=== PATIENT | female | born 1990 | race African-American/Black ===

== ENCOUNTER 2017-10-17 17:32 | Day surgery (SDC) | payer OTHER ==
[~2017-10-17 17:32] MED LIST: ACETAMINOPHEN 1,000 MG/100 ML 100 ML IV ONE; DEXAMETHASONE 4 MG/ML VIAL IVP ONE; LACTATED RINGERS 1,000 ML IV ONE; LIDOCAINE-MPF 2% 5 ML VIAL IM ONE; MIDAZOLAM 2 MG/2 ML VIAL IVP ONE; ONDANSETRON 4 MG/2 ML VIAL IVP ONE; PROPOFOL 200 MG/20 ML VIAL IVP ONE; ROCURONIUM 50 MG/5 ML VIAL IVP ONE; ceFAZolin 1 GM VIAL IV ONE; fentaNYL 100 MCG/2 ML VIAL IVP ONE
[2017-10-17 18:56] LABS: BILIRUBIN,URINE NEGATIVE (NEGATIVE); GLUCOSE, URINE (UA) NEGATIVE (NEGATIVE); KETONES,URINE (UA) NEGATIVE (NEGATIVE); LEUKOCYTE ESTERASE, URINE NEGATIVE (NEGATIVE); NITRITE,URINE NEGATIVE (NEGATIVE); OCCULT BLOOD,URINE SMALL (NEGATIVE); PROTEIN,URINE 30 mg/dL (NEGATIVE); UROBILINOGEN,URINE 0.2 (NORMAL) E.U./dL (NORMAL)
[2017-10-17 18:59] LABS: CLARITY,URINE HAZY (CLEAR)
[2017-10-17 19:00] LABS: HCG UR QUAL POSITIVE
[2017-10-17 19:15] LABS: BACTERIA,URINE Rare /HPF (None Seen); MUCUS,URINE Few Strands; SQUAMOUS EPITHELIAL CELL,UR FEW Squamous (<= Few)
[2017-10-17 19:18] LABS: BASOPHILS # (AUTO) 0.1 10^3/uL (0.0-0.1); BASOPHILS % (AUTO) 0.5 %; EOSINOPHILS % (AUTO) 0.2 %; HGB - HEMOGLOBIN 11.2 g/dL (12.0-16.0); LYMPHOCYTES # (AUTO) 0.4 10^3/uL (1.5-3.5); LYMPHOCYTES % (AUTO) 4.2 %; MEAN CORPUSCULAR HEMOGLOBIN 26.8 pg (27.0-31.0); MEAN CORPUSCULAR HGB CONC 31.7 g/dL (32.0-36.0); MEAN CORPUSCULAR VOLUME 84.5 fL (81.0-99.0); MEAN PLATELET VOLUME 10.8 fL (7.9-10.8); MONOCYTES # (AUTO) 0.3 10^3/uL (0.0-1.0); MONOCYTES % (AUTO) 2.8 %; NEUTROPHILS # (AUTO) 8.8 10^3/uL (1.5-6.6); NEUTROPHILS % (AUTO) 92.3 %; PLT - PLATELET COUNT 133 10^3/uL (130-450); RED BLOOD COUNT 4.19 10^6/uL (4.20-5.40); RED CELL DISTRIBUTION WIDTH 13.9 % (12.0-15.0); WHITE BLOOD COUNT 9.5 x10^3/uL (4.8-10.8)
[2017-10-17 19:33] LABS: ALBUMIN 4.3 g/dL (3.2-5.5); ALBUMIN/GLOBULIN RATIO 1.2 (1.0-2.2); BILIRUBIN,TOTAL 0.6 mg/dL (0.2-1.0); CREATININE 0.8 mg/dL (0.4-1.0); TOTAL PROTEIN 7.8 g/dL (6.7-8.2)
--- NOTE | 2017-10-17 19:41 | ED Physician Documentation ---
PD HPI ABD PAIN - Stated complaint Stated Complaint: ABD PX - Chief complaint Chief Complaint: Abd Pain - History obtained from History obtained from: Patient - History of Present Illness Timing - onset: Other (This is a , now G3 who did not know she was who has had 3 days of decreased appetite and a day worth of increasing pelvic pain with spotting. She may have had some fevers or chills but nothing measured and she has been nauseous but has not thrown up. 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 PROFESSOR OF BUSINESS: None : None HEENT: None Psych: None Musculoskeletal: Rheumatoid arthritis Derm: None - Past Surgical History Past Surgical History: No - Present Medications Home Medications: Ambulatory Orders Medication Instructions Recorded Confirmed Multivitamin with Iron 1 each PO DAILY 10/17/17 10/17/17 [Multivitamins with Iron] sulfaSALAzine [Azulfidine] 1 tab PO DAILY 10/17/17 10/17/17 - Allergies Allergies/Adverse Reactions: Allergies Allergy/AdvReac Type Severity Reaction Status Date / Time No Known Drug Allergies Allergy Verified 10/17/17 18:03 - Social History Does the pt smoke?: No Smoking Status: Never smoker Does the pt drink ETOH?: No Does the pt have substance abuse?: No - Family History Family history: reports: Non contributory - Immunizations Immunizations are current?: Yes - POLST Patient has POLST: No PD ED PE NORMAL - Vitals Vital signs reviewed: Yes - General General: Alert and oriented X 3, No acute distress - HEENT HEENT: PERRL, EOMI - Neck Neck: Supple, no meningeal sign, No bony TTP - Cardiac Cardiac: RRR, No murmur - Respiratory Respiratory: No respiratory distress, Clear bilaterally - Abdomen Abdomen: Normal bowel sounds, Soft, Other (Mild lower abdominal tenderness, more right than left without surgical signs.) - Back Back: No CVA TTP, No spinal TTP - Derm Derm: Normal color, Warm and dry - Extremities Extremities: No deformity, No tenderness to palpate, Normal ROM s pain, No edema , No calf tenderness / cord - Neuro Neuro: Alert and oriented X 3, Normal speech - Psych Psych: Normal mood, Normal affect Results - Vitals Vitals: Vital Signs - 24 hr 10/17/17 10/17/17 17:59 21:15 Temperature 37.1 C Heart Rate 94 115 H Respiratory 16 16 Rate Blood Pressure 120/56 L 143/116 H O2 Saturation 99 99 Oxygen O2 Source Room air - Labs Labs: Laboratory Tests 10/17/17 10/17/17 10/17/17 18:35 19:12 19:12 WBC 9.5 RBC 4.19 L Hgb 11.2 L Hct 35.4 L MCV 84.5 MCH 26.8 L MCHC 31.7 L RDW 13.9 Plt Count 133 MPV 10.8 Neut # 8.8 H Lymph # 0.4 L [place] # 0.3 Eos # 0.0 Baso # 0.1 Absolute Nucleated RBC 0.01 Nucleated RBC % 0.1 Sodium 133 L Potassium 3.7 Chloride 102 Carbon Dioxide 25 Anion Gap 6.0 BUN 10 Creatinine 0.8 Estimated GFR (MDRD) 104 Glucose 94 Calcium 9.0 Total Bilirubin 0.6 AST 25 ALT 18 Alkaline Phosphatase 45 Total Protein 7.8 Albumin 4.3 Globulin 3.5 Albumin/Globulin Ratio 1.2 Lipase 17 L HCG, Quant Urine Color YELLOW Urine Clarity HAZY Urine pH 7.0 Ur Specific [place] 1.025 Urine Protein 30 H Urine Glucose (UA) NEGATIVE Urine Ketones NEGATIVE Urine Occult Blood SMALL H Urine Nitrite NEGATIVE Urine Bilirubin NEGATIVE Urine Urobilinogen 0.2 (NORMAL) Ur Leukocyte Esterase NEGATIVE Urine RBC 6-10 H Urine WBC 0-3 Ur Squamous Epith Cells FEW Squamous Urine Bacteria Rare Urine Mucus Few Strands Ur Microscopic Review INDICATED Urine Culture Comments NOT INDICATED Urine HCG, Qual POSITIVE Blood Type 10/17/17 10/17/17 19:12 19:12 WBC RBC Hgb Hct MCV MCH MCHC RDW Plt Count MPV Neut # Lymph # [place] # Eos # Baso # Absolute Nucleated RBC Nucleated RBC % Sodium Potassium Chloride Carbon Dioxide Anion Gap BUN Creatinine Estimated GFR (MDRD) Glucose Calcium Total Bilirubin AST ALT Alkaline Phosphatase Total Protein Albumin Globulin Albumin/Globulin Ratio Lipase HCG, Quant 855.83 Urine Color Urine Clarity Urine pH Ur Specific [place] Urine Protein Urine Glucose (UA) Urine Ketones Urine Occult Blood Urine Nitrite Urine Bilirubin Urine Urobilinogen Ur Leukocyte Esterase Urine RBC Urine WBC Ur Squamous Epith Cells Urine Bacteria Urine Mucus Ur Microscopic Review Urine Culture Comments Urine HCG, Qual Blood Type A POSITIVE - Rads (name of study) Pelvic sono Radiology: Discussed with rads (Right adnexal mass measuring 2.8 x 2.6 x 2.7 cm concerning for ectopic but she also has a possible gestational sac corresponding to dates.) PD MEDICAL DECISION MAKING - ED course ED course: 26-year-old woman with pelvic pain, found to be here and workup demonstrates concern for ectopic . Dr. Lopez, the on-call OB will be in to see her and we spoke around 9:20 PM. After his evaluation he plans to take her to the operating room for laparoscopy. Departure - Departure Disposition: ED Transfer to [facility] Clinical Impression: Ectopic Qualifiers: Location of ectopic : ovarian Intrauterine status: without intrauterine Laterality: right Qualified Code(s): O00.201 - Right ovarian without intrauterine Condition: Serious
[2017-10-17] MEDS ORDERED: MORPHINE 2 MG/ML SYRINGE IVP STA (21:01)
--- NOTE | 2017-10-17 21:23 | Ultrasound Report ---
REVISED: REPORT ORIGINALLY SIGNED ON 10/17/2017@2123; ORDERS LINKED ON 2017 jll EXAM: FIRST TRIMESTER OBSTETRIC ULTRASOUND (Less than 11 weeks) EXAM DATE: 10/17/2017 09:01 PM. CLINICAL HISTORY: Pelvic pain, +preg. COMPARISONS: None. TECHNIQUE: Transabdominal and transvaginal ultrasound examination with static image documentation. CLINICAL DATES: EGA 4 weeks 5 days with REGINALDO 06/21/2018 based on LMP. ASSESSMENT Gestational Sac: Spelled out of hypoechoic fluid in the fundal endometrium measuring 1.2 x 1.37 m could represents an early gestational sac correspond out of endometrial fluid. Mean gestational sac diameter: 2.2 mm = 4 weeks 6 days. Embryo: None visualized. MATERNAL STRUCTURES Uterus: Anteverted. Unremarkable. Cervix: Closed. Right Ovary/Adnexa: Unremarkable. The ovary measures 4.3 x 2.7 x 2.6 cm, volume 15.8 cc. Probable small corpus luteum. Complex appearing right adnexal mass adjacent to the right ovary with heterogeneous echogenicity and some hyperechoic components measuring 2.8 x 2.6 x 2.7 cm. This was not well seen transvaginally and the patient was unable to tolerate transvaginal exam due to pain. Left Ovary/Adnexa: 2.8 x 2.1 x 1.9 cm, unremarkable. Free Fluid: Small amount of free fluid in the pelvis with some internal echoes. Other: None. IMPRESSION 1. Heterogeneous right adnexal mass adjacent to right ovary measuring 2.8 x 2.6 x 2.7 cm. Ectopic is not excluded. It is possible that this could also represent a complex cystic lesion. This was only seen transabdominally and was not well evaluated transvaginally due to patient pain. 2. Small area of oval fluid in the fundal endometrium which could represent an early gestational sac with estimated gestational age 4 weeks 6 days, which correlates with dating by LMP. This could also represent a small amount of endometrial fluid. 3. Small amount of mildly complex pelvic free fluid. RADIA The above findings were discussed with Dr. Aguiar by Dr. Anurag Spicer at 21:21 hrs on 10/17/17. Referring Provider Line: [phone] SITE ID: [id number]
[2017-10-17] MEDS ORDERED: SODIUM CHLORIDE 0.9% 1,000 ML IV ONE (21:28)
[2017-10-17] MEDS ORDERED: BUPIVACAINE 0.25% PF 30 ML VIAL ONE (23:24)
[2017-10-17 23:34] VITALS: BP 130/60
[2017-10-17] MEDS ORDERED: LACTATED RINGERS 600 ML IV ONE (23:35)
[2017-10-18] MEDS ORDERED: BUPIVACAINE 0.25% PF 30 ML VIAL SUBQ ONE (00:19)
[2017-10-18] MEDS ORDERED: LACTATED RINGERS 1,000 ML IV ONE (00:23)
[2017-10-18] MEDS ORDERED: MEPERIDINE 50 MG/ML VIAL ONE (01:41)
[2017-10-18] MEDS ORDERED: oxyCODONE 5 MG TABLET PO PRN (03:31)
[2017-10-18] MEDS ORDERED: KETOROLAC 30 MG/ML VIAL IVP PRN (03:32)
[2017-10-18] MEDS ORDERED: ONDANSETRON 4 MG/2 ML VIAL IVP PRN (03:32)
[2017-10-18] MEDS ORDERED: LACTATED RINGERS 1,000 ML IV SCH (04:00)
--- NOTE | 2017-10-20 10:35 | PREOP HISTORY & PHYSICAL ---
DATE OF SERVICE: 10/17/2017 Physician: Eliel Lopez MD ANTICIPATED DATE FOR PROCEDURE: 10/17/2017 IDENTIFICATION: Patient is a 26-year-old G3, P2, female whose last menstrual period was 09/14/2017; this makes her 4 weeks 5 days. CHIEF COMPLAINT: Right-sided abdominal pain. HISTORY OF PRESENT ILLNESS: Patient states yesterday she developed right lower quadrant pain, which has gotten progressively worse with time. She states this is sharp and very severe at this time. She states it is better with pain medications. She states it radiates to the right leg. She was using control pills for contraception. She denies any history of any pelvic infections or IUD use. She has a positive test here in the ED. PAST MEDICAL HISTORY: Positive for RA. SURGICAL HISTORY: None. ALLERGIES: CHLOROQUINE. CURRENT MEDICATIONS 1. Sulfasalazine. 2. MVI. HABITS: Patient denies the use of alcohol, tobacco, street or addictive drugs, or any tetrahydrocannabinol. 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 Lives with her children at this particular time. FAMILY HISTORY: Negative for breast or ovarian cancer. REVIEW OF SYSTEMS: Positive for feeling poorly. She has also had some nausea. PHYSICAL EXAMINATION VITAL SIGNS: Temperature of 37.1. Pulse is 99-115. Blood pressure 120/56. HEENT: Pupils equal, round. Extraocular muscles intact. Thyroid is not palpably enlarged. Mouth is clear. HEART: Regular rate and rhythm with a grade 2/6 systolic murmur heard best at the left second costal space. LUNGS: Lung hebert are clear. BACK: No spinal or CVA tenderness. ABDOMEN: Tender with rebound, particularly in the right lower quadrant. She is tender throughout. PELVIC: Examination shows some right adnexal tenderness. There is tenderness abdominally once again. STUDIES: Patient has an ultrasound which shows a 2.6-2.7 adnexal mass, which is complex on the right hand side. There is thought of an intrauterine gestational sac. LABORATORY DATA: Labs show a quantitative hCG of 855. White count is 9.5. Hemoglobin is 11.2. Hematocrit is 35.4. Platelets are 133. Electrolytes are normal with the exception of a hyponatremia of 133. IMPRESSION: A 26-year-old G3, P2, at 4.5 weeks' gestation with a suspected right ectopic . Appears to have peritoneal signs which are compatible with hemoperitoneum. PLAN: Will perform a laparoscopy with possible resection of the ectopic , tube, and/or ovary. Risks and benefits have been explained to the patient including those, but not limited to bleeding, infection, injury to pelvic organs, which include the uterus, tubes, ovaries, bowel, bladder, and ureter. She is aware of the potential for DVT with PE, as well as postoperative adhesions which could cause pain, bowel obstruction, and infertility. TD: 10/17/2017 23:48
--- NOTE | 2017-10-20 11:21 | OPERATIVE REPORT ---
DATE OF SERVICE: 10/18/2017 Physician: Eliel Lopez MD PREOPERATIVE DIAGNOSIS: Right ectopic . POSTOPERATIVE DIAGNOSIS: Right ectopic with 250 mL of hemoperitoneum. NAME OF PROCEDURE: Laparoscopic right salpingectomy, irrigation of hemoperitoneum. SURGEON: Eliel Lopez MD ANESTHESIA: General via endotracheal tube. ANESTHESIOLOGIST: Kenya Soni CRNA FINDINGS: Hemoperitoneum of 250 mL with a ruptured right ectopic . COMPLICATIONS: None. ESTIMATED BLOOD LOSS: 250 mL. SPECIMENS TO PATHOLOGY: Right fallopian tube. DESCRIPTION OF PROCEDURE: Following adequate endotracheal anesthesia, patient was placed in the dorsal lithotomy position in [facility]. At this point, she was prepped and draped in the usual fashion. A timeout was performed, in which the patient was identified , as well as concerns addressed. A speculum was placed in the vagina, the cervix was visualized, grasped with a single-tooth tenaculum, and then a cervical manipulator was placed in the cervical os. At this point, the lead operator's gloves were changed and then a stab wound was made in the subumbilical region, following local anesthesia with 0.25% Marcaine without epinephrine. A 5 mm trocar and sheath were placed in the abdominal cavity on the first pass. Two additional ports were placed, both in the left and the right lower quadrants following local anesthesia with 0.25% Marcaine, as well as a skin incision with a #15 blade. Both of these were done under direct visualization. Hemoperitoneum was encountered at this time. The peritoneum was irrigated and aspirated with sterile saline .There was an obvious right ectopic , which had blood dripping from the fimbriated end. There was a question of whether there was a rent through the serosa. At this point, the mesosalpinx was cauterized and transected with the LigaSure. A 12 mm port was made following extension of the incision on the right lower quadrant. The fallopian tube was then grasped and brought up through the incision; this was carried all the way to the cornua. This area was inspected, no bleeding was noted. The remainder of the pelvis was irrigated with copious amounts of sterile saline. The left fallopian tube, which had previously been visualized and noted to have a fimbriated end, without evidence of any scarring. Both ovaries appeared to be free of disease. The appendix also appeared to be free of disease; however, was retrocecal on the right hand side. Gallbladder appeared to be normal. Roughly 2 liters of sterile saline was used to irrigate the abdominal cavity out to decrease any postoperative pain. At this point, the procedure was terminated. The right lower quadrant 12 mm port was removed, and then a Silvio-Herminia was used to place a suture of 0 Vicryl, which closed this incision completely. The left lower quadrant trocar was then removed and then as much of the CO2 was allowed to escape. The right lower quadrant incision was then closed subcutaneously with 2-0 Vicryl, and then all 3 incisions were closed using 4-0 Monocryl subcuticular. Dermabond was used for the final closure. The instruments were then removed from the vagina. Patient tolerated the procedure well and was taken to Recovery in stable condition. Sponge and needle counts were correct. TD: 10/18/2017 04:52 KEVIN
== END 2017-10-18 09:05 | disposition home or self-care (01) ==
LOC: ED 17:32 → SDS 22:39 → OBS 10-18 01:35 → SDS 10-18 09:05
PROVIDERS: ATTEND Obstetrics & Gynecology
PROC: 0UT54ZZ Resection of Right Fallopian Tube, Percutaneous Endoscopic Approach (ICD-10-PCS; 2017-10-17)
PROC: 10T24ZZ Resection of Products of Conception, Ectopic, Percutaneous Endoscopic Approach (ICD-10-PCS; principal; 2017-10-17 23:30)
DX: O00.101 Right tubal pregnancy without intrauterine pregnancy (principal); K66.1 Hemoperitoneum
CPT/HCPCS: 36415; 59151; 76801; 76817; 80053; 81001; 81025; 83690; 84702; 85025; 86850; 86900; 86901; 86920; 96361; 96374; 99284; A9270; J0131; J2175; J2270; J7120; 81003; 87086; 88305

== ENCOUNTER 2018-12-28 16:27 | Emergency (ER) | payer OTHER ==
[2018-12-28 16:57] LABS: BILIRUBIN,URINE NEGATIVE (NEGATIVE); CLARITY,URINE CLEAR (CLEAR); GLUCOSE, URINE (UA) NEGATIVE (NEGATIVE); KETONES,URINE (UA) NEGATIVE (NEGATIVE); LEUKOCYTE ESTERASE, URINE NEGATIVE (NEGATIVE); NITRITE,URINE NEGATIVE (NEGATIVE); OCCULT BLOOD,URINE NEGATIVE (NEGATIVE); PROTEIN,URINE NEGATIVE (NEGATIVE); UROBILINOGEN,URINE 0.2 (NORMAL) E.U./dL (NORMAL)
[2018-12-28 16:58] LABS: HCG UR QUAL POSITIVE
--- NOTE | 2018-12-28 18:53 | ED Physician Documentation ---
PD HPI ABD PAIN - Stated complaint Stated Complaint: ABD PX/CONSTIPATED - Chief complaint Chief Complaint: Abd Pain - History obtained from History obtained from: Patient - History of Present Illness Timing - onset: How many weeks ago (has had some upper abd pains and reflux for few weeks. Taking TUMs at times. has had firm, less stools as well. Having some lower abd cramping more the past few days, and thought it might be from constipation.) Timing - details: Gradual onset, Intermittant Quality: Cramping, Pain Location: Epigastric (with some intermittent gas and burning feeling.), Suprapubic (with intermittent cramping pain more recently.) Improved by: Meds (TUMs) Worsened by: No: Eating, Moving Associated symptoms: Nausea, Other (positive test last week). No: Fever, Vomiting, Diarrhea Similar symptoms before: Has not had sx before Recently seen: Not recently seen Review of Systems Constitutional: denies: Fever, Chills GI: reports: Nausea, Constipation. denies: Vomiting, Diarrhea : reports: Now EGA (LMP 11/26/18). denies: Dysuria, Frequency PD PAST MEDICAL HISTORY - Past Medical History Past Medical History: No Cardiovascular: None Respiratory: None Neuro: None Endocrine/Autoimmune: None GI: None ADMINISTRATIVE RECEPTIONIST: None : None HEENT: None Psych: None Musculoskeletal: Rheumatoid arthritis Derm: None - Past Surgical History Past Surgical History: No /ADMINISTRATIVE RECEPTIONIST: Other - Present Medications Home Medications: Ambulatory Orders Medication Instructions Recorded Confirmed Multivitamin with Iron 1 each PO DAILY 10/17/17 10/17/17 [Multivitamins with Iron] sulfaSALAzine [Azulfidine] 1 tab PO DAILY 10/17/17 10/17/17 Docusate Sodium 100 mg PO DAILY #30 capsule 12/28/18 Famotidine 20 mg PO DAILY #30 tablet 12/28/18 Lidocaine Viscous 2% [Xylocaine 5 ml PO Q4H PRN #100 ml 12/28/18 Viscous 2%] Mag Hydrox/Al Hydrox/Simeth [Adv 10 ml PO Q4H PRN #355 ml 12/28/18 Antacid-Antigas Liquid] - Allergies Allergies/Adverse Reactions: Allergies Allergy/AdvReac Type Severity Reaction Status Date / Time No Known Drug Allergies Allergy Verified 12/28/18 16:35 - Social History Does the pt smoke?: No Smoking Status: Never smoker Does the pt drink ETOH?: No Does the pt have substance abuse?: No - Immunizations Immunizations are current?: Yes - POLST Patient has POLST: No PD ED PE NORMAL - Vitals Vital signs reviewed: Yes - General General: Alert and oriented X 3, No acute distress, Well developed/nourished - HEENT HEENT: Pharynx benign - Neck Neck: Supple, no meningeal sign, No adenopathy - Cardiac Cardiac: RRR, No murmur - Respiratory Respiratory: Clear bilaterally - Abdomen Abdomen: Normal bowel sounds, Soft, Non distended, No organomegaly, Other (some tender epigastric. Not really tender in lower abd) - Female Female : Deferred - Rectal Rectal: Deferred - Derm Derm: Normal color, Warm and dry Results - Vitals Vitals: Oxygen O2 Source Room air - Labs Labs: Laboratory Tests 12/28/18 12/28/18 12/28/18 16:49 21:19 21:19 WBC 4.4 L RBC 4.26 Hgb 11.5 L Hct 35.6 L MCV 83.7 MCH 26.9 L MCHC 32.1 RDW 14.7 Plt Count 115 L MPV 10.3 Neut # (Auto) 2.4 Lymph # (Auto) 1.5 [place] # (Auto) 0.3 Eos # (Auto) 0.1 Baso # (Auto) 0.0 Absolute Nucleated RBC 0.00 Nucleated RBC % 0.0 HCG, Quant 153.04 Urine Color YELLOW Urine Clarity CLEAR Urine pH 7.0 Ur Specific [place] 1.010 Urine Protein NEGATIVE Urine Glucose (UA) NEGATIVE Urine Ketones NEGATIVE Urine Occult Blood NEGATIVE Urine Nitrite NEGATIVE Urine Bilirubin NEGATIVE Urine Urobilinogen 0.2 (NORMAL) Ur Leukocyte Esterase NEGATIVE Ur Microscopic Review NOT INDICATED Urine Culture Comments NOT INDICATED Urine HCG, Qual POSITIVE - Rads (name of study) OB U/S Radiology: Prelim report reviewed (no IUP seen. Right ovary complex cyst. No free fluid. ), See rad report PD MEDICAL DECISION MAKING - ED course Complexity details: considered differential (may be some constipation, but not clear that is her cause of pain. Seems GERD and then issue of early with no IUP and ovarian complex cyst. Needs repeat HCG. ), d/w patient Departure - Departure Disposition: 01 Home, Self Care Clinical Impression: Early stage of , Abdominal cramps, Reflux gastritis Ovarian cyst Qualifiers: Laterality: right Qualified Code(s): N83.201 - Unspecified ovarian cyst, right side Condition: Stable Record reviewed to determine appropriate education?: Yes Instructions: ED Abdominal Pain Rule Out Ectopic Follow-Up: [facility] [Provider Group] Prescriptions: Docusate Sodium 100 mg PO DAILY #30 capsule Famotidine 20 mg PO DAILY #30 tablet Lidocaine Viscous 2% [Xylocaine Viscous 2%] 5 ml PO Q4H PRN #100 ml PRN Reason: Pain Mag Hydrox/Al Hydrox/Simeth [Adv Antacid-Antigas Liquid] 10 ml PO Q4H PRN #355 ml PRN Reason: Abdominal Pain Comments: Stay well-hydrated. For your reflux symptoms, change to famotidine acid reducing medicine daily. Use antacid such as Mylanta along with the lidocaine as needed for discomfort. Use Tylenol if needed for cramps. You are early with a very low blood test of the hCG called the quantitative level. It is 153. Recheck with your primary care at the clinic in 2 to 3 days for repeat blood test. We want to see if this is going up or down to distinguish between an early versus a miscarriage. At this point the ultrasound did not identify but is very early on. They would want to repeat the ultrasound when the quantitative level gets closer to thousand to 1500 which would likely be in about a week. However you would want to get it checked to begin with in 2 to 3 days. Discharge Date/Time: 12/28/18 22:32
[2018-12-28] MEDS ORDERED: MAG HYDROX/AL HYDROX/SIMETH 30 ML UDC PO STA (19:40)
[2018-12-28] MEDS ORDERED: DOCUSATE SODIUM 100 MG CAPSULE PO STA (19:40)
[2018-12-28] MEDS ORDERED: LIDOCAINE VISCOUS 2% 15 ML UDC MM STA (19:40)
[2018-12-28] MEDS ORDERED: ACETAMINOPHEN 325 MG TABLET PO STA (19:40)
[2018-12-28 21:25] LABS: BASOPHILS % (AUTO) 0.5 %; EOSINOPHILS # (AUTO) 0.1 10^3/uL (0.0-0.7); EOSINOPHILS % (AUTO) 2.5 %; HGB - HEMOGLOBIN 11.5 g/dL (12.0-16.0); LYMPHOCYTES # (AUTO) 1.5 10^3/uL (1.5-3.5); LYMPHOCYTES % (AUTO) 33.8 %; MEAN CORPUSCULAR HEMOGLOBIN 26.9 pg (27.0-31.0); MEAN CORPUSCULAR HGB CONC 32.1 g/dL (32.0-36.0); MEAN CORPUSCULAR VOLUME 83.7 fL (81.0-99.0); MEAN PLATELET VOLUME 10.3 fL (7.9-10.8); MONOCYTES # (AUTO) 0.3 10^3/uL (0.0-1.0); MONOCYTES % (AUTO) 7.9 %; NEUTROPHILS # (AUTO) 2.4 10^3/uL (1.5-6.6); NEUTROPHILS % (AUTO) 55.3 %; PLT - PLATELET COUNT 115 10^3/uL (130-450); RED BLOOD COUNT 4.26 10^6/uL (4.20-5.40); RED CELL DISTRIBUTION WIDTH 14.7 % (12.0-15.0); WHITE BLOOD COUNT 4.4 x10^3/uL (4.8-10.8)
--- NOTE | 2018-12-28 21:42 | Ultrasound Report ---
Reason: early preg; abd pain Procedure Date: 12/28/2018 Accession Number: [id number] / [id number] Procedure: US - OB First Trimester CPT Code: FULL RESULT: EXAM: FIRST TRIMESTER OBSTETRIC ULTRASOUND (Less than 11 weeks) EXAM DATE: 12/28/2018 08:16 PM. CLINICAL HISTORY: Early preg; abd pain. LMP: Unknown. COMPARISONS: OB FIRST TRIMESTER 10/17/2017 8:13 PM. TECHNIQUE: Transabdominal and transvaginal ultrasound examination with static image documentation. CLINICAL DATES: EGA 3 weeks 6 days with REGINALDO 09/07/2019 based on last menstrual period 12/01/2018. ASSESSMENT: No intrauterine gestation identified and no adnexal gestation identified. MATERNAL STRUCTURES: Uterus: Anteverted. Unremarkable. Cervix: Closed. Right Ovary/Adnexa: The ovary measures 4.1 x 2.6 x 3.7 cm, volume 20.1 cc. Complex cyst measuring 3.1 x 1.9 x 3.2 cm.. Left Ovary/Adnexa: The ovary measures 2.7 x 1.9 x 2.6 cm, volume 7 cc. Unremarkable. Free Fluid: None. Other: None. IMPRESSION: 1. At this gestational 3 weeks 6 days no discernible intrauterine gestation identified. No definite extra-axial masses. Consider repeat ultrasound in 2-3 weeks. 2. Complex cyst associated with the right ovary. RADIA
--- NOTE | 2018-12-28 21:45 | Ultrasound Report ---
Reason: early preg; abd pain Procedure Date: 12/28/2018 Accession Number: [id number] / [id number] Procedure: US - OB Transvaginal CPT Code: FULL RESULT: EXAM: FIRST TRIMESTER OBSTETRIC ULTRASOUND (Less than 11 weeks) EXAM DATE: 12/28/2018 08:16 PM. CLINICAL HISTORY: Early preg; abd pain. LMP: Unknown. COMPARISONS: OB FIRST TRIMESTER 10/17/2017 8:13 PM. TECHNIQUE: Transabdominal and transvaginal ultrasound examination with static image documentation. CLINICAL DATES: EGA 3 weeks 6 days with REGINALDO 09/07/2019 based on last menstrual period 12/01/2018. ASSESSMENT: No intrauterine gestation identified. MATERNAL STRUCTURES: Uterus: Anteverted. Unremarkable. Cervix: Closed. Right Ovary/Adnexa: The ovary measures 4.1 x 2.6 x 3.7 cm, volume 20.1 cc. Complex cyst associated with the right ovary measuring 3.1 x 1.9 x 3.2 cm. Left Ovary/Adnexa: The ovary measures 2.7 x 1.9 x 2.6 cm, volume 7 cc. Unremarkable. Free Fluid: None. Other: None. IMPRESSION: 1. No intrauterine gestation. 2. Unremarkable uterus. 3. Right ovarian complex cyst. RADIA
[2018-12-28 22:31] VITALS: BP 121/59
== END 2018-12-28 22:32 | disposition home or self-care (01) ==
LOC: ED 16:27
DX: O99.611 Diseases of the digestive system complicating pregnancy, first trimester (principal); K21.9 Gastro-esophageal reflux disease without esophagitis; K29.70 Gastritis, unspecified, without bleeding; O34.81 Maternal care for other abnormalities of pelvic organs, first trimester; N83.201 Unspecified ovarian cyst, right side; Z3A.01 Less than 8 weeks gestation of pregnancy
CPT/HCPCS: 36415; 76801; 76817; 81003; 81025; 84702; 85025; 99283; A9270; 81001; 87086

== ENCOUNTER 2019-01-04 11:43 | Emergency (ER) | payer OTHER ==
[2019-01-04 12:48] LABS: BASOPHILS % (AUTO) 0.6 %; EOSINOPHILS # (AUTO) 0.1 10^3/uL (0.0-0.7); EOSINOPHILS % (AUTO) 0.9 %; HGB - HEMOGLOBIN 11.4 g/dL (12.0-16.0); LYMPHOCYTES # (AUTO) 1.3 10^3/uL (1.5-3.5); LYMPHOCYTES % (AUTO) 23.1 %; MEAN CORPUSCULAR HEMOGLOBIN 26.1 pg (27.0-31.0); MEAN CORPUSCULAR HGB CONC 29.6 g/dL (32.0-36.0); MEAN CORPUSCULAR VOLUME 88.1 fL (81.0-99.0); MEAN PLATELET VOLUME 12.9 fL (7.9-10.8); MONOCYTES # (AUTO) 0.3 10^3/uL (0.0-1.0); MONOCYTES % (AUTO) 5.2 %; NEUTROPHILS # (AUTO) 3.8 10^3/uL (1.5-6.6); PLT - PLATELET COUNT 134 10^3/uL (130-450); RED BLOOD COUNT 4.37 10^6/uL (4.20-5.40); RED CELL DISTRIBUTION WIDTH 14.1 % (12.0-15.0); WHITE BLOOD COUNT 5.4 x10^3/uL (4.8-10.8)
[2019-01-04 13:08] LABS: ALBUMIN 3.9 g/dL (3.2-5.5); BILIRUBIN,TOTAL 0.6 mg/dL (0.2-1.0); CALCIUM 9.3 mg/dL (8.5-10.3); CREATININE 0.8 mg/dL (0.4-1.0)
[2019-01-04 13:08] LABS: BILIRUBIN,URINE NEGATIVE (NEGATIVE); GLUCOSE, URINE (UA) NEGATIVE (NEGATIVE); KETONES,URINE (UA) TRACE mg/dL (NEGATIVE); LEUKOCYTE ESTERASE, URINE NEGATIVE (NEGATIVE); NITRITE,URINE NEGATIVE (NEGATIVE); OCCULT BLOOD,URINE MODERATE (NEGATIVE); PROTEIN,URINE NEGATIVE (NEGATIVE); UROBILINOGEN,URINE 0.2 (NORMAL) E.U./dL (NORMAL)
[2019-01-04 13:12] LABS: CLARITY,URINE CLEAR (CLEAR)
[2019-01-04 13:23] LABS: BACTERIA,URINE Rare /HPF (None Seen); RBC,URINE 0-5 /HPF (0-5); SQUAMOUS EPITHELIAL CELL,UR FEW Squamous (<= Few)
[2019-01-04] MEDS ORDERED: oxyCODONE 5 MG TABLET PO STA (15:12)
--- NOTE | 2019-01-04 15:25 | ED Physician Documentation ---
PD HPI FEMALE - Stated complaint Stated Complaint: FEMALE /5 WKS PREG - Chief complaint Chief Complaint: General - History obtained from History obtained from: Patient - History of Present Illness Timing - onset: Today Timing - duration: Days (1) Timing - details: Gradual onset Pain level max: 4 Pain level max: 4 Associated symptoms: Vaginal bleeding (spotting). No: Fever, Chest/shoulder pain, Abdominal pain, Back pain, Pelvic pain, Vaginal pain, Vaginal discharge, Genital sore/lesion, Dysuria, Urinary frequency, Hematuria Contributing factors: (4 weeks). 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 now L pelvic pain) Review of Systems Constitutional: denies: Fever, Chills GI: denies: Nausea, Vomiting : denies: Dysuria, Frequency, Hesitancy Skin: denies: Rash Musculoskeletal: denies: Neck pain, Back pain Neurologic: denies: Headache PD PAST MEDICAL HISTORY - Past Medical History Past Medical History: Yes Cardiovascular: None Respiratory: None Neuro: None Endocrine/Autoimmune: None GI: None FACE WORKER: None : None HEENT: None Psych: None Musculoskeletal: Rheumatoid arthritis Derm: None Other Past Medical History: ectopic - Past Surgical History Past Surgical History: No /FACE WORKER: Other - Present Medications Home Medications: Ambulatory Orders Medication Instructions Recorded Confirmed Multivitamin with Iron 1 each PO DAILY 10/17/17 10/17/17 [Multivitamins with Iron] sulfaSALAzine [Azulfidine] 1 tab PO DAILY 10/17/17 10/17/17 Docusate Sodium 100 mg PO DAILY #30 capsule 12/28/18 Famotidine 20 mg PO DAILY #30 tablet 12/28/18 Lidocaine Viscous 2% [Xylocaine 5 ml PO Q4H PRN #100 ml 12/28/18 Viscous 2%] Mag Hydrox/Al Hydrox/Simeth [Adv 10 ml PO Q4H PRN #355 ml 12/28/18 Antacid-Antigas Liquid] Ondansetron Odt [Zofran] 4 mg TL Q6H PRN #10 tablet 01/04/19 Oxycodone HCl/Acetaminophen 1 - 2 each PO Q6H PRN #10 tablet 01/04/19 [Percocet 5-325 mg Tablet] - Allergies Allergies/Adverse Reactions: Allergies Allergy/AdvReac Type Severity Reaction Status Date / Time No Known Drug Allergies Allergy Verified 01/04/19 12:15 - Social History Does the pt smoke?: No Smoking Status: Never smoker Does the pt drink ETOH?: No Does the pt have substance abuse?: No - Immunizations Immunizations are current?: Yes - POLST Patient has POLST: No PD ED PE NORMAL - Vitals Vital signs reviewed: Yes - General General: Alert and oriented X 3, No acute distress, Well developed/nourished - HEENT HEENT: PERRL, Moist mucous membranes - Neck Neck: Supple, no meningeal sign - Cardiac Cardiac: RRR, Strong equal pulses - Respiratory Respiratory: No respiratory distress, Clear bilaterally - Abdomen Abdomen: Soft, Non distended, Other (Mild tender to palpation left lower quadrant) - Female Female : Pt declined - Back Back: No CVA TTP, No spinal TTP - Derm Derm: Warm and dry - Extremities Extremities: No edema - Neuro Neuro: Alert and oriented X 3 - Psych Psych: Normal mood, Normal affect Results - Vitals Vitals: Vital Signs - 24 hr 01/04/19 01/04/19 01/04/19 12:12 14:57 16:38 Temperature 36.7 C 36.5 C Heart Rate 60 74 60 Respiratory 14 15 16 Rate Blood Pressure 106/81 H 126/56 L 126/66 O2 Saturation 100 100 99 Oxygen O2 Source Room air - Labs Labs: Laboratory Tests 01/04/19 01/04/19 01/04/19 10:55 12:43 12:43 WBC 5.4 RBC 4.37 Hgb 11.4 L Hct 38.5 MCV 88.1 MCH 26.1 L MCHC 29.6 L RDW 14.1 Plt Count 134 MPV 12.9 H Neut # (Auto) 3.8 Lymph # (Auto) 1.3 L [place] # (Auto) 0.3 Eos # (Auto) 0.1 Baso # (Auto) 0.0 Absolute Nucleated RBC 0.00 Nucleated RBC % 0.0 Sodium 141 Potassium 3.5 Chloride 106 Carbon Dioxide 26 Anion Gap 9.0 BUN 10 Creatinine 0.8 Estimated GFR (MDRD) 102 Glucose 77 Calcium 9.3 Total Bilirubin 0.6 AST 20 ALT 17 Alkaline Phosphatase 45 Total Protein 8.0 Albumin 3.9 Globulin 4.1 Albumin/Globulin Ratio 1.0 Lipase 39 HCG, Quant Urine Color YELLOW Urine Clarity CLEAR Urine pH 7.0 Ur Specific [place] 1.010 Urine Protein NEGATIVE Urine Glucose (UA) NEGATIVE Urine Ketones TRACE Urine Occult Blood MODERATE H Urine Nitrite NEGATIVE Urine Bilirubin NEGATIVE Urine Urobilinogen 0.2 (NORMAL) Ur Leukocyte Esterase NEGATIVE Urine RBC 0-5 Urine WBC 0-3 Ur Squamous Epith Cells FEW Squamous Urine Bacteria Rare Ur Microscopic Review INDICATED Urine Culture Comments NOT INDICATED Blood Type 01/04/19 01/04/19 12:43 12:43 WBC RBC Hgb Hct MCV MCH MCHC RDW Plt Count MPV Neut # (Auto) Lymph # (Auto) [place] # (Auto) Eos # (Auto) Baso # (Auto) Absolute Nucleated RBC Nucleated RBC % Sodium Potassium Chloride Carbon Dioxide Anion Gap BUN Creatinine Estimated GFR (MDRD) Glucose Calcium Total Bilirubin AST ALT Alkaline Phosphatase Total Protein Albumin Globulin Albumin/Globulin Ratio Lipase HCG, Quant 170.98 Urine Color Urine Clarity Urine pH Ur Specific [place] Urine Protein Urine Glucose (UA) Urine Ketones Urine Occult Blood Urine Nitrite Urine Bilirubin Urine Urobilinogen Ur Leukocyte Esterase Urine RBC Urine WBC Ur Squamous Epith Cells Urine Bacteria Ur Microscopic Review Urine Culture Comments Blood Type A POSITIVE - Rads (name of study) OB ultrasound Radiology: Prelim report reviewed, EMP read contemporaneously, See rad report (No evidence of intrauterine gestation. No suspicious adnexal masses are seen. Differential considerations include early intrauterine , recent , or occult ectopic . 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 She is also having increasing left pelvic pain. No acute findings on ultrasound. Discussed the case with OB who recommends methotrexate therapy. Dr. Christopher came and saw the patient in the emergency department and discussed the risks and benefits of therapy with the patient. She accepts the risks at this point. She was given methotrexate. We will follow-up for repeat hCG on Friday. Patient counseled regarding signs and symptoms for which I believe and urgent re-evaluation would be necessary. Patient with good understanding of and agreement to plan and is comfortable going home at this time This document was made in part using voice recognition software. While efforts are made to proofread this document, sound alike and grammatical errors may occur. Departure - Departure Disposition: 01 Home, Self Care Clinical Impression: Ectopic Qualifiers: Location of ectopic : unspecified location Intrauterine status: without intrauterine Qualified Code(s): O00.90 - Unspecified ectopic without intrauterine Condition: Good Health Concerns: abd pain preg Plan of Treatment: mtx Care Goals: prevent from ectopic Assessment: non-viable preg Instructions: ED Preg Ectopic Methotrexate Tx Follow-Up: Clarence Christopher DO [Provider Admit Priv/Credential] - 01/08/19 10:00 am Prescriptions: Ondansetron Odt [Zofran] 4 mg TL Q6H PRN #10 tablet PRN Reason: Nausea / Vomiting Oxycodone HCl/Acetaminophen [Percocet 5-325 mg Tablet] 1 - 2 each PO Q6H PRN #10 tablet PRN Reason: pain Comments: You were given methotrexate today. Follow-up with Dr. Christopher on Friday as scheduled. Return especially for any worsening or uncontrollable pain. Return for any other new or worsening symptoms. Do not drink alcohol or drive while on narcotic pain medicine. Note that many narcotic pain relievers also contain tylenol/acetaminophen. Please ensure that your total dose of acetaminophen from all sources does not exceed 3 grams (3000mg) per day. You may constipated on this medication, take a stool softener such as "Colace" twice a day while you are on it. Also recommend a [id number] laxative such as senna or MiraLAX any day that you do not have a bowel movement. If you received narcotic pain medication in the emergency department, do not drive or operate machinery for the next 24 hours. Discharge Date/Time: 01/04/19 16:51
--- NOTE | 2019-01-04 16:31 | Ultrasound Report ---
Reason: L pelvic pain, + preg Procedure Date: 01/04/2019 Accession Number: [id number] / [id number] Procedure: US - OB First Trimester CPT Code: FULL RESULT: EXAM: PELVIC ULTRASOUND FIRST TRIMESTER OBSTETRIC ULTRASOUND (Less than 11 weeks) EXAM DATE: 01/04/2019 03:28 PM. CLINICAL HISTORY: Left pelvic pain COMPARISON: OB FIRST TRIMESTER 12/28/2018 8:16 PM. TECHNIQUE: Realtime transabdominal pelvic scan performed to identify the uterus and adnexa and as an overview of other pelvic structures, followed by transvaginal scan to provide greater detail of the uterus and adnexa, with static image documentation. FINDINGS: Uterus: Retroverted position. Normal overall size and echotexture. Masses: None. Endometrium: 12 mm. No evidence of intrauterine gestation. Cervix: Unremarkable. Right Ovary: 3.1 x 2.7 x 2.6 cm, volume 11.4 cc. Normal echotexture and blood flow. Left Ovary: 2.5 x 2.5 x 1.4 cm, volume 4.6 cc. Normal echotexture and blood flow. Free Fluid: None. Other: There is a small amount of echogenic debris within the urinary bladder. IMPRESSION: No evidence of intrauterine gestation. No suspicious adnexal masses are seen. Differential considerations include early intrauterine , recent , or occult ectopic . RAD[facility]
[2019-01-04] MEDS ORDERED: METHOTREXATE 50 MG/2 ML MDV IM STA (16:37)
[2019-01-04 16:38] VITALS: BP 126/66
== END 2019-01-04 16:51 | disposition home or self-care (01) ==
LOC: ED 11:43
DX: O00.90 Unspecified ectopic pregnancy without intrauterine pregnancy (principal)
CPT/HCPCS: 36415; 76801; 76817; 80053; 81001; 83690; 84702; 85025; 86900; 86901; 96374; 99283; 99284; A9270; J9250; 81003; 87086

== ENCOUNTER 2019-01-12 14:00 | Outpatient (CLI) | payer OTHER | END 2019-01-12 14:01 | disposition home or self-care (01) | LOC: LAB 14:00 | PROVIDERS: ATTEND Obstetrics & Gynecology | DX: Z09 Encounter for follow-up examination after completed treatment for conditions other than malignant neoplasm (principal); Z87.59 Personal history of other complications of pregnancy, childbirth and the puerperium | CPT/HCPCS: 36415; 84702 ==

== ENCOUNTER 2019-01-21 13:17 | Emergency (ER) | payer OTHER ==
--- NOTE | 2019-01-21 14:42 | XRAY Report ---
Reason: cough Procedure Date: 01/21/2019 Accession Number: [id number] / [id number] Procedure: XR - Chest 2 View X-Ray CPT Code: 14272 FULL RESULT: EXAM: CHEST RADIOGRAPHY EXAM DATE: 01/21/2019 02:25 PM. CLINICAL HISTORY: Cough. COMPARISON: None. TECHNIQUE: 2 views. FINDINGS: Lungs/Pleura: Clear. No effusion or pneumothorax. Mediastinum: Heart and mediastinal contours are unremarkable. Upper lobe vessels not distended. Other: None. IMPRESSION: Normal 2-view chest radiography. RADIA
[2019-01-21] MEDS ORDERED: DEXAMETHASONE 10 MG/ML VIAL PO STA (17:21)
[2019-01-21] MEDS ORDERED: CHERRY SYRUP 10 ML UDC PO ONE (17:21)
--- NOTE | 2019-01-21 17:26 | ED Physician Documentation ---
PD HPI URI - Stated complaint Stated Complaint: COUGH/CHEST/RIB PX - Chief complaint Chief Complaint: Resp - History obtained from History obtained from: Patient - History of Present Illness Timing - onset: How many days ago (2) Timing duration: Days (2) Timing details: Gradual onset, Still present Associated symptoms: Nasal congestion, Rhinorrhea, Sore throat, Dry cough, Chest pain, Dyspnea. No: Fever Contributing factors: Immunocompromised (on methotrexate) Improves by: Rest, Medication Similar symptoms before: Has not had sx before Recently seen: Emergency Dept - Additional information Additional information: 28-year-old female who has had a recent ectopic treated with methotrexate has developed a cough which is not productive of sputum she is developed a sore throat with this and the coughing is hard enough that she is having a lot of pain in her ribs. Review of Systems Constitutional: denies: Fever Eyes: denies: Decreased vision Ears: reports: Ear pain Nose: reports: Rhinorrhea / runny nose, Congestion Throat: reports: Sore throat Cardiac: reports: Chest pain / pressure. denies: Palpitations, Pedal edema, Calf pain Respiratory: reports: Cough. denies: Dyspnea GI: denies: Abdominal Pain, Nausea, Vomiting PD PAST MEDICAL HISTORY - Past Medical History Past Medical History: No Cardiovascular: None Respiratory: None Neuro: None Endocrine/Autoimmune: None GI: None ANESTHESIA RESIDENT: None : None HEENT: None Psych: None Musculoskeletal: Rheumatoid arthritis Derm: None - Past Surgical History Past Surgical History: No /ANESTHESIA RESIDENT: Other - Present Medications Home Medications: Ambulatory Orders Medication Instructions Recorded Confirmed Multivitamin with Iron 1 each PO DAILY 10/17/17 10/17/17 [Multivitamins with Iron] RX: sulfaSALAzine [Azulfidine] 1 tab PO DAILY 10/17/17 10/17/17 RX: Docusate Sodium 100 mg PO DAILY #30 capsule 12/28/18 RX: Famotidine 20 mg PO DAILY #30 tablet 12/28/18 RX: Lidocaine Viscous 2% 5 ml PO Q4H PRN #100 ml 12/28/18 [Xylocaine Viscous 2%] RX: Mag Hydrox/Al Hydrox/Simeth 10 ml PO Q4H PRN #355 ml 12/28/18 [Adv Antacid-Antigas Liquid] Ondansetron Odt [Zofran] 4 mg TL Q6H PRN #10 tablet 01/04/19 Oxycodone HCl/Acetaminophen 1 - 2 each PO Q6H PRN #10 tablet 01/04/19 [Percocet 5-325 mg Tablet] Benzonatate [Tessalon Perle] 100 - 200 mg PO TID PRN #30 capsule 01/21/19 RX: Azithromycin [Zithromax] 250 mg PO DAILY #6 tablet 01/21/19 - Allergies Allergies/Adverse Reactions: Allergies Allergy/AdvReac Type Severity Reaction Status Date / Time No Known Drug Allergies Allergy Verified 01/21/19 13:21 - Social History Does the pt smoke?: No Smoking Status: Never smoker Does the pt drink ETOH?: No Does the pt have substance abuse?: No - Immunizations Immunizations are current?: Yes - POLST Patient has POLST: No PD ED PE NORMAL - Vitals Vital signs reviewed: Yes (normal ) - General General: Alert and oriented X 3, No acute distress, Well developed/nourished - HEENT HEENT: Atraumatic, PERRL, EOMI, Other (both TM's are retracted the pharynx has erythema to the tonsilar pillars bilaterally worse on the right and with minimal exudate. 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, No motor deficit, No sensory deficit, Normal speech Eye Opening: Spontaneous Motor: Obeys Commands Verbal: Oriented GCS Score: 15 - Psych Psych: Normal mood, Normal affect Results - Vitals Vitals: Vital Signs - 24 hr 01/21/19 01/21/19 13:19 17:39 Temperature 36.4 C L 37.0 C Heart Rate 74 68 Respiratory 18 18 Rate Blood Pressure 125/65 130/70 O2 Saturation 98 99 Oxygen O2 Source Room air - Rads (name of study) chest Radiology: Prelim report reviewed (Impression: Normal two-view chest radiography.), EMP read indepedently, See rad report PD MEDICAL DECISION MAKING - ED course Complexity details: considered differential, d/w patient ED course: 28-year-old female who is on methotrexate has developed a cough and congestion with sore throat she has mild findings on physical exam no infiltrate in her chest x-ray she is having coughing paroxysms hard enough to injure her ribs. She will need a cough suppressant and because of the immunosuppression we will give her an antibiotic as well she is administered a dose of dexamethasone here in the emergency department. Departure - Departure Disposition: Home, Self Care Clinical Impression: Bronchitis Condition: Stable Instructions: ED Upper Resp Infec Abx Tx Follow-Up: DALJIT Mendoza [Provider Group] Prescriptions: RX: Azithromycin [Zithromax] 250 mg PO DAILY #6 tablet Benzonatate [Tessalon Perle] 100 - 200 mg PO TID PRN #30 capsule PRN Reason: Cough Discharge Date/Time: 01/21/19 17:40
[2019-01-21 17:40] VITALS: BP 130/70
== END 2019-01-21 17:40 | disposition home or self-care (01) ==
LOC: ED 13:17
DX: J40 Bronchitis, not specified as acute or chronic (principal)
CPT/HCPCS: 71046; 99283; 99284; A9270

== ENCOUNTER 2019-05-18 18:23 | Emergency (ER) | payer OTHER ==
[2019-05-18 18:55] LABS: BILIRUBIN,URINE NEGATIVE (NEGATIVE); GLUCOSE, URINE (UA) NEGATIVE (NEGATIVE); KETONES,URINE (UA) NEGATIVE (NEGATIVE); LEUKOCYTE ESTERASE, URINE NEGATIVE (NEGATIVE); NITRITE,URINE NEGATIVE (NEGATIVE); OCCULT BLOOD,URINE TRACE-INTA (NEGATIVE); PH,URINE 7.5 PH (5.0-7.5); PROTEIN,URINE NEGATIVE (NEGATIVE); UROBILINOGEN,URINE 0.2 (NORMAL) E.U./dL (NORMAL)
[2019-05-18 19:01] LABS: CLARITY,URINE CLEAR (CLEAR); HCG UR QUAL NEGATIVE
[2019-05-18 19:09] LABS: BASOPHILS % (AUTO) 0.2 %; EOSINOPHILS # (AUTO) 0.1 10^3/uL (0.0-0.7); EOSINOPHILS % (AUTO) 2.7 %; HGB - HEMOGLOBIN 10.6 g/dL (12.0-16.0); LYMPHOCYTES # (AUTO) 1.3 10^3/uL (1.5-3.5); MEAN CORPUSCULAR HEMOGLOBIN 25.5 pg (27.0-31.0); MEAN CORPUSCULAR HGB CONC 30.1 g/dL (32.0-36.0); MEAN CORPUSCULAR VOLUME 84.8 fL (81.0-99.0); MONOCYTES # (AUTO) 0.3 10^3/uL (0.0-1.0); MONOCYTES % (AUTO) 6.3 %; NEUTROPHILS # (AUTO) 2.5 10^3/uL (1.5-6.6); NEUTROPHILS % (AUTO) 59.6 %; PLT - PLATELET COUNT 167 10^3/uL (130-450); RED BLOOD COUNT 4.15 10^6/uL (4.20-5.40); RED CELL DISTRIBUTION WIDTH 14.6 % (12.0-15.0); WHITE BLOOD COUNT 4.1 x10^3/uL (4.8-10.8)
[2019-05-18 19:24] LABS: ALBUMIN 3.9 g/dL (3.2-5.5); ALBUMIN/GLOBULIN RATIO 1.1 (1.0-2.2); BILIRUBIN,TOTAL 0.5 mg/dL (0.2-1.0); CREATININE 0.9 mg/dL (0.4-1.0); TOTAL PROTEIN 7.6 g/dL (6.7-8.2)
[2019-05-18] MEDS ORDERED: DICYCLOMINE 10 MG CAPSULE PO STA (20:07)
[2019-05-18] MEDS ORDERED: ACETAMINOPHEN 325 MG TABLET PO STA (20:07)
[2019-05-18] MEDS ORDERED: MAG HYDROX/AL HYDROX/SIMETH 30 ML UDC PO STA (20:14)
[2019-05-18] MEDS ORDERED: MAGNESIUM CITRATE 296 ML BOTTLE PO STA (20:16)
--- NOTE | 2019-05-18 20:16 | ED Physician Documentation ---
PD HPI ABD PAIN - Stated complaint Stated Complaint: ABD/SIDE PX, NAUSEA - Chief complaint Chief Complaint: Abd Pain - History obtained from History obtained from: Patient - History of Present Illness Timing - onset: How many weeks ago (2) Timing - duration: Weeks (2) Timing - details: Gradual onset Pain level max: 4 Pain level now: 3 Quality: Cramping, Aching, Pain Location: All over / everywhere Radiation: No: Chest, , Lower back, Left flank, Left shoulder, Right flank, Right shoulder, Upper back Improved by: Other (Nothing) Worsened by: Other (Nothing) Associated symptoms: Constipation (states constipated for 2 weeks). 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 : None HEENT: None Psych: None Musculoskeletal: Rheumatoid arthritis Derm: None - Past Surgical History Past Surgical History: No /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: Other - Present Medications Home Medications: Ambulatory Orders Medication Instructions Recorded Confirmed Multivitamin with Iron 1 each PO DAILY 10/17/17 10/17/17 [Multivitamins with Iron] sulfaSALAzine [Azulfidine] 1 tab PO DAILY 10/17/17 10/17/17 Docusate Sodium 100 mg PO DAILY #30 capsule 12/28/18 Famotidine 20 mg PO DAILY #30 tablet 12/28/18 Lidocaine Viscous 2% [Xylocaine 5 ml PO Q4H PRN #100 ml 12/28/18 Viscous 2%] Mag Hydrox/Al Hydrox/Simeth [Adv 10 ml PO Q4H PRN #355 ml 12/28/18 Antacid-Antigas Liquid] Ondansetron Odt [Zofran] 4 mg TL Q6H PRN #10 tablet 01/04/19 Oxycodone HCl/Acetaminophen 1 - 2 each PO Q6H PRN #10 tablet 01/04/19 [Percocet 5-325 mg Tablet] Azithromycin [Zithromax] 250 mg PO DAILY #6 tablet 01/21/19 Benzonatate [Tessalon Perle] 100 - 200 mg PO TID PRN #30 capsule 01/21/19 Polyethylene Glycol 3350 [Miralax] 17 gm PO DAILY PRN #1 bottle 05/18/19 - Allergies Allergies/Adverse Reactions: Allergies Allergy/AdvReac Type Severity Reaction Status Date / Time No Known Drug Allergies Allergy Verified 01/21/19 13:21 - Social History Does the pt smoke?: No Smoking Status: Never smoker Does the pt drink ETOH?: No Does the pt have substance abuse?: No - Immunizations Immunizations are current?: Yes - POLST Patient has POLST: No PD ED PE NORMAL - Vitals Vital signs reviewed: Yes - General General: Alert and oriented X 3, No acute distress - HEENT HEENT: PERRL, Moist mucous membranes - Neck Neck: Supple, no meningeal sign - Cardiac Cardiac: RRR - Respiratory Respiratory: No respiratory distress, Clear bilaterally - Abdomen Abdomen: Soft, Non tender, Non distended - Back Back: No CVA TTP, No spinal TTP - Derm Derm: Warm and dry - Extremities Extremities: No edema - Neuro Neuro: Alert and oriented X 3 - Psych Psych: Normal mood, Normal affect Results - Vitals Vitals: Vital Signs - 24 hr 05/18/19 05/18/19 18:29 21:11 Temperature 36 C L 36.9 C Heart Rate 64 64 Respiratory 18 16 Rate Blood Pressure 139/57 H 128/64 O2 Saturation 100 100 Oxygen O2 Source Room air - Labs Labs: Laboratory Tests 05/18/19 05/18/19 05/18/19 18:40 19:03 19:03 WBC 4.1 L RBC 4.15 L Hgb 10.6 L Hct 35.2 L MCV 84.8 MCH 25.5 L MCHC 30.1 L RDW 14.6 Plt Count 167 MPV 13.0 H Neut # (Auto) 2.5 Lymph # (Auto) 1.3 L [place] # (Auto) 0.3 Eos # (Auto) 0.1 Baso # (Auto) 0.0 Absolute Nucleated RBC 0.00 Nucleated RBC % 0.0 Sodium 141 Potassium 3.6 Chloride 107 Carbon Dioxide 26 Anion Gap 8.0 BUN 12 Creatinine 0.9 Estimated GFR (MDRD) 89 Glucose 102 H Calcium 9.0 Total Bilirubin 0.5 AST 22 ALT 15 Alkaline Phosphatase 38 L Total Protein 7.6 Albumin 3.9 Globulin 3.7 Albumin/Globulin Ratio 1.1 Lipase 53 H Urine Color LT. YELLOW Urine Clarity CLEAR Urine pH 7.5 Ur Specific [place] 1.010 Urine Protein NEGATIVE Urine Glucose (UA) NEGATIVE Urine Ketones NEGATIVE Urine Occult Blood TRACE-INTA Urine Nitrite NEGATIVE Urine Bilirubin NEGATIVE Urine Urobilinogen 0.2 (NORMAL) Ur Leukocyte Esterase NEGATIVE Ur Microscopic Review NOT INDICATED Urine Culture Comments NOT INDICATED Urine HCG, Qual NEGATIVE PD MEDICAL DECISION MAKING - ED course Complexity details: reviewed results, re-evaluated patient, considered differential, d/w patient ED course: Patient with abdominal pain of unclear etiology. Will trial on MiraLAX as she has been constipated at home. Also given magnesium citrate here. She is very well-appearing, nontoxic. Afebrile. Abdomen is soft, nontender nondistended on serial exam. Patient counseled regarding signs and symptoms for which I believe and urgent re-evaluation would be necessary. Patient with good understanding of and agreement to plan and is comfortable going home at this time This document was made in part using voice recognition software. While efforts are made to proofread this document, sound alike and grammatical errors may occur. Departure - Departure Disposition: 01 Home, Self Care Clinical Impression: Abdominal cramping Abdominal pain Qualifiers: Abdominal location: unspecified location Qualified Code(s): R10.9 - Unspecified abdominal pain Constipation Qualifiers: Constipation type: unspecified constipation type Qualified Code(s): K59.00 - Constipation, unspecified Condition: Good Instructions: ED Abdominal Pain Unkn Cause, ED Constipation Follow-Up: your,doctor in 1 week [Other] Prescriptions: Polyethylene Glycol 3350 [Miralax] 17 gm PO DAILY PRN #1 bottle PRN Reason: Constipation Comments: The cause of your symptoms are unclear, but may be related to the constipation. Return if you worsen. Follow-up with your doctor for further care. Your blood counts (white, red and platelets) are mildly low. This should be followed up with your doctor for further evaluation Discharge Date/Time: 05/18/19 21:56
--- NOTE | 2019-05-18 20:55 | XRAY Report ---
Reason: abd pain Procedure Date: 05/18/2019 Accession Number: [id number] / [id number] Procedure: XR - Abdomen 1 View X-Ray CPT Code: 44664 Final Report FULL RESULT: EXAM: ABDOMEN RADIOGRAPHY EXAM DATE: 05/18/2019 08:27 PM. CLINICAL HISTORY: Gradual onset abdominal pain and cramping, which started 2 weeks ago. COMPARISON: CHEST 2 VIEW 01/21/2019 2:16 PM. TECHNIQUE: 1 view. FINDINGS: Bowel Gas Pattern: Nonobstructive bowel gas pattern. Other: No pathologic abdominal calcifications. Bones appear intact. IMPRESSION: Nonobstructive bowel gas pattern. [facility]
[2019-05-18 21:12] VITALS: BP 128/64
== END 2019-05-18 21:56 | disposition home or self-care (01) ==
LOC: ED 18:23
DX: R10.9 Unspecified abdominal pain (principal); K59.00 Constipation, unspecified
CPT/HCPCS: 36415; 74018; 80053; 81003; 81025; 83690; 85025; 99283; 99284; A9270; 81001; 87086

== ENCOUNTER 2019-06-23 03:35 | Emergency (ER) | payer OTHER ==
--- NOTE | 2019-06-23 04:51 | ED Physician Documentation ---
PD HPI ABD PAIN - Stated complaint Stated Complaint: RIGHT SIDE PX - Chief complaint Chief Complaint: Abd Pain - Additional information Additional information: This is a 28-year-old female who is currently 6 weeks by last menstrual period, with a history of 2 past ectopic pregnancies, who presents with lower abdominal discomfort. Patient states that she has had some discomfort over the last week, it is intermittent, and will fluctuate from being on her right side or her left side and radiate towards her back somewhat. This seems to be somewhat positionally dependent. Her pain is currently mild. Given her history of ectopic and the fact that she has not had an ultrasound to confirm an intrauterine , she wanted to be checked out today. She has had a bit of nausea in this , no persistent vomiting. 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 - Present Medications Home Medications: Ambulatory Orders Medication Instructions Recorded Confirmed Multivitamin with Iron 1 each PO DAILY 10/17/17 10/17/17 [Multivitamins with Iron] sulfaSALAzine [Azulfidine] 1 tab PO DAILY 10/17/17 10/17/17 Docusate Sodium 100 mg PO DAILY #30 capsule 12/28/18 Famotidine 20 mg PO DAILY #30 tablet 12/28/18 Lidocaine Viscous 2% [Xylocaine 5 ml PO Q4H PRN #100 ml 12/28/18 Viscous 2%] Mag Hydrox/Al Hydrox/Simeth [Adv 10 ml PO Q4H PRN #355 ml 12/28/18 Antacid-[place] Liquid] Ondansetron Odt [Zofran] 4 mg TL Q6H PRN #10 tablet 01/04/19 Oxycodone HCl/Acetaminophen 1 - 2 each PO Q6H PRN #10 tablet 01/04/19 [Percocet 5-325 mg Tablet] Azithromycin [Zithromax] 250 mg PO DAILY #6 tablet 01/21/19 Benzonatate [Tessalon Perle] 100 - 200 mg PO TID PRN #30 capsule 01/21/19 Polyethylene Glycol 3350 [Miralax] 17 gm PO DAILY PRN #1 bottle 05/18/19 - Allergies Allergies/Adverse Reactions: Allergies Allergy/AdvReac Type Severity Reaction Status Date / Time No Known Drug Allergies Allergy Verified 01/21/19 13:21 - Social History Does the pt smoke?: No Smoking Status: Never smoker Does the pt drink ETOH?: No Does the pt have substance abuse?: No - Immunizations Immunizations are current?: Yes - POLST Patient has POLST: No PD ED PE NORMAL - Vitals Vital signs reviewed: Yes - General General: Alert and oriented X 3, No acute distress - HEENT HEENT: PERRL - Neck Neck: Supple, no meningeal sign - Cardiac Cardiac: RRR, No murmur - Respiratory Respiratory: Clear bilaterally - Abdomen Abdomen: Other (Soft, nondistended. There is very mild tenderness in the suprapubic region as well as in the right lower quadrant and left lower quadrant. No guarding. No upper abdominal tenderness.) - Derm Derm: Warm and dry - Extremities Extremities: No deformity - Neuro Neuro: Alert and oriented X 3 - Psych Psych: Normal mood, Normal affect Results - Vitals Vitals: Oxygen O2 Source Room air - Labs Labs: Laboratory Tests 06/23/19 06/23/19 06/23/19 05:00 05:00 05:00 WBC 6.7 RBC 4.21 Hgb 11.2 L Hct 35.3 L MCV 83.8 MCH 26.6 L MCHC 31.7 L RDW 14.9 Plt Count 156 MPV 12.8 H Neut # (Auto) 4.8 Lymph # (Auto) 1.4 L [place] # (Auto) 0.4 Eos # (Auto) 0.1 Baso # (Auto) 0.0 Absolute Nucleated RBC 0.00 Nucleated RBC % 0.0 Sodium 136 Potassium 3.6 Chloride 102 Carbon Dioxide 25 Anion Gap 9.0 BUN 12 Creatinine 0.8 Estimated GFR (MDRD) 102 Glucose 91 Calcium 9.4 Total Bilirubin 0.6 AST 18 ALT 15 Alkaline Phosphatase 41 L Total Protein 8.0 Albumin 4.0 Globulin 4.0 Albumin/Globulin Ratio 1.0 Lipase 36 HCG, Quant 62430.00 - Rads (name of study) OB US Radiology: Other (Single IUP at 5 wks 4 days, no signficiant adnexal abnormalities) PD MEDICAL DECISION MAKING - ED course Complexity details: considered differential (Ectopic , UTI, MSK pain, round ligament pain, constipation, appendicitis, ovarian torsion.) ED course: On exam pt is well appearing. Labs show an expected elevated HCG, stable anemia, no leukocytosis, normal lipase and unremarkable abdoimal panel. US shows an IUP without signs of adnexal abnormalities. The migratory nature of her pain makes torsion and other acute abdominal pathology such as appendicitis unlikely. On repeat exam her abdomen is soft and non-tender. She has been constipated, which may be contributing to her discomfort. Treatment for this was discussed. She is having no vaginal bleeding. She was unable to provide a urine sample but she has no urinary symptoms at this time, and she does not want to wait to give one. She understands that with fever, non-improving pain, or dysuria/urgency she needs to have a UA performed. I discussed PCP/OB follow up and return precautions and patient was discharged home. Departure - Departure Disposition: 01 Home, Self Care Clinical Impression: Abdominal pain Qualifiers: Abdominal location: lower abdomen, unspecified Qualified Code(s): R10.30 - Lower abdominal pain, unspecified Follow-Up: Your,OB [Other] - Within 1 week () Comments: You were seen today for abdominal pain. Your labs are reassuring, and your ultrasound shows a fetus in the uterus, and no signs of an ectopic . I do not know what the exact cause of your abdominal pain is, it is possible the constipation is playing a role, please try the MiraLAX twice daily until you are having regular bowel movements. Also make sure that you are drinking adequate water. If you develop increasing pain, repeated vomiting, fever, or other concerning symptoms, please return to the emergency department. Also if you develop any pain or burning with urination make sure you get your urine checked for infection. You do have a mild anemia, but it actually is improved from your past values. You likely should be taking iron at some point in the future, but I think you can wait to make sure your constipation is better before you start the iron. Discharge Date/Time: 06/23/19 07:17
[2019-06-23 05:04] LABS: BASOPHILS % (AUTO) 0.3 %; EOSINOPHILS # (AUTO) 0.1 10^3/uL (0.0-0.7); EOSINOPHILS % (AUTO) 1.2 %; HGB - HEMOGLOBIN 11.2 g/dL (12.0-16.0); LYMPHOCYTES # (AUTO) 1.4 10^3/uL (1.5-3.5); LYMPHOCYTES % (AUTO) 21.2 %; MEAN CORPUSCULAR HEMOGLOBIN 26.6 pg (27.0-31.0); MEAN CORPUSCULAR HGB CONC 31.7 g/dL (32.0-36.0); MEAN CORPUSCULAR VOLUME 83.8 fL (81.0-99.0); MEAN PLATELET VOLUME 12.8 fL (7.9-10.8); MONOCYTES # (AUTO) 0.4 10^3/uL (0.0-1.0); MONOCYTES % (AUTO) 6.1 %; NEUTROPHILS # (AUTO) 4.8 10^3/uL (1.5-6.6); NEUTROPHILS % (AUTO) 70.8 %; PLT - PLATELET COUNT 156 10^3/uL (130-450); RED BLOOD COUNT 4.21 10^6/uL (4.20-5.40); RED CELL DISTRIBUTION WIDTH 14.9 % (12.0-15.0); WHITE BLOOD COUNT 6.7 x10^3/uL (4.8-10.8)
[2019-06-23 05:24] LABS: BILIRUBIN,TOTAL 0.6 mg/dL (0.2-1.0); CALCIUM 9.4 mg/dL (8.5-10.3); CREATININE 0.8 mg/dL (0.4-1.0)
--- NOTE | 2019-06-23 06:23 | Ultrasound Report ---
Reason: 6 wks preg, LLQ pain, hx 2 ectopics Procedure Date: 06/23/2019 Accession Number: [id number] / [id number] Procedure: US - OB First Trimester CPT Code: Final Report FULL RESULT: EXAM: FIRST TRIMESTER OBSTETRIC ULTRASOUND (Less than 11 weeks) EXAM DATE: 06/23/2019 05:59 AM. CLINICAL HISTORY: 6 wks preg, LLQ pain, hx 2 ectopics. LMP: Unknown. COMPARISONS: OB FIRST TRIMESTER 01/04/2019 3:28 PM. TECHNIQUE: Transabdominal and transvaginal ultrasound examination with static image documentation. CLINICAL DATES: EGA 5 weeks and 4 days with REGINALDO 02/19/2020 based on LMP. ASSESSMENT: Gestational Sac: Single intrauterine. Mean gestational sac diameter: 14 mm = 6 weeks and 2 days. Embryo: CRL (crown-rump length): Not seen. Cardiac activity: Not seen as pole not seen. Yolk sac: 2 mm. Amniotic fluid: Not accurately assessed at this gestational age. Early placenta: Not visible at this gestational age. Other: No perigestational fluid collection demonstrated. MATERNAL STRUCTURES: Uterus: Anteverted. Unremarkable. 0.8 x 0.4 x 0.8 cm hypoechoic area in the posterior intramural fundus, which may reflect a small fibroid. Cervix: Closed. Right Ovary/Adnexa: The ovary measures 3.7 x 2.2 x 1.4 cm, volume 6.0 cc. Unremarkable. Left Ovary/Adnexa: The ovary measures 4.8 x 3.8 x 3.4 cm, volume 32.4 cc. Unremarkable. 3.0 cm simple cyst. Free Fluid: Trace simple free fluid.. Other: None. IMPRESSION: 1. Single intrauterine at EGA 5 weeks and 4 days based on mean gestational sac diameter, which is concordant with clinical dates. 2. Assigned dating is REGINALDO 02/19/2020 based on LMP. RADIA
[2019-06-23 07:17] VITALS: BP 115/56
== END 2019-06-23 07:17 | disposition home or self-care (01) ==
LOC: ED 03:35
DX: O99.89 Other specified diseases and conditions complicating pregnancy, childbirth and the puerperium (principal); R10.30 Lower abdominal pain, unspecified; Z3A.01 Less than 8 weeks gestation of pregnancy
CPT/HCPCS: 36415; 76801; 76817; 80053; 83690; 84702; 85025; 99284

== ENCOUNTER 2020-01-25 07:00 | Outpatient (CLI) | payer OTHER ==
[2020-01-26 00:08] LABS: TRICHOMONAS VAGINALIS DNA NEGATIVE (NEGATIVE)
== END 2020-01-25 23:59 | disposition home or self-care (01) ==
LOC: LAB.R 07:00
PROVIDERS: ATTEND Advanced Practice Midwife
DX: Z34.90 Encounter for supervision of normal pregnancy, unspecified, unspecified trimester (principal); Z36.85 Encounter for antenatal screening for Streptococcus B
CPT/HCPCS: 87491; 87591; 87661; 87797

== ENCOUNTER 2020-02-01 11:22 | Outpatient (CLI) | payer OTHER ==
[2020-02-01 11:49] LABS: ALBUMIN 2.9 g/dL (3.2-5.5); ALBUMIN/GLOBULIN RATIO 0.7 (1.0-2.2); BILIRUBIN,TOTAL 0.7 mg/dL (0.2-1.0); CALCIUM 9.1 mg/dL (8.5-10.3); CREATININE 0.6 mg/dL (0.4-1.0)
[2020-02-04 12:04] LABS: CHENODEOXYCHOLIC ACID 2.1 umol/L (< OR = 3.1); CHOLIC ACID 1.6 umol/L (< OR = 1.8); DEOXYCHOLIC ACID <0.5 umol/L (< OR = 2.4)
== END 2020-02-01 11:23 | disposition home or self-care (01) ==
LOC: LAB 11:22
PROVIDERS: ATTEND Advanced Practice Midwife
DX: Z34.90 Encounter for supervision of normal pregnancy, unspecified, unspecified trimester (principal)
CPT/HCPCS: 36415; 80053; 82542

== ENCOUNTER 2020-02-14 17:05 | Outpatient (CLI) | payer OTHER ==
[2020-02-14 19:08] VITALS: BP 118/54
--- NOTE | 2020-02-14 21:06 | PROVIDER PROGRESS NOTE ---
- HPI Current : Current EDU 02/19/20 Gestation 39 Weeks and 2 Days 5 Para 2 Vital Signs Temperature 99.3 F 02/14/20 17:12 Heart Rate 97 02/14/20 17:12 Respiratory Rate 18 02/14/20 17:12 Blood Pressure 120/52 L 02/14/20 17:12 O2 Saturation 100 02/14/20 17:12 Temperature 99.1 F 02/14/20 19:04 Heart Rate 95 02/14/20 19:04 Respiratory Rate 24 02/14/20 19:04 Blood Pressure 118/54 L 02/14/20 19:04 O2 Saturation 100 02/14/20 19:04 - Exam SVE FT/20/-3 at initial presentation Progressed to 1.5/70/-2 over 90 min observation - Procedures OB Procedure Performed: NST NST Procedure: EFM 145 mod christel 15x15 accels no decels TOCO: intermittent Service Date of procedure: 02/14/20 Procedure Details: Patient was observed for early labor Cat I tracing Cervical change but not yet meeting criteria for admission Offered continued observation Opted to return home. Lives within 15 min of facility Warning signs reviewed DX: Early labor
== END 2020-02-14 19:28 | disposition home or self-care (01) ==
LOC: WFO 17:05 → FBP 17:06 → WFO 19:28
PROVIDERS: ATTEND Obstetrics & Gynecology
DX: Z34.83 Encounter for supervision of other normal pregnancy, third trimester (principal); Z3A.39 39 weeks gestation of pregnancy
CPT/HCPCS: 99212

== ENCOUNTER 2020-02-18 21:27 | Outpatient (CLI) | payer OTHER ==
[2020-02-18] MEDS ORDERED: METOCLOPRAMIDE 10 MG TABLET PO ONE (22:20)
[2020-02-18] MEDS ORDERED: oxyCODONE 5 MG TABLET PO ONE (22:20)
[2020-02-18] MEDS ORDERED: ACETAMINOPHEN 500 MG TABLET PO ONE (22:20)
[2020-02-18 23:33] VITALS: BP 134/57
--- NOTE | 2020-02-21 23:40 | PROVIDER PROGRESS NOTE ---
- HPI Chief Complaint: Other (Patient is a 29 yo at 39+6 wga here for assessment of headache. No vision change. Poor response to 500 mg acetaminophen. No RUQ pain. Continues to have disorganized contractions. +FM. No LOF/VB) Current : Current EDU 02/19/20 Gestation 39 Weeks and 6 Days 5 Para 2 Vital Signs Temperature 99.5 F 02/18/20 21:40 Heart Rate 97 02/18/20 21:40 Respiratory Rate 18 02/18/20 21:40 Blood Pressure 134/65 H 02/18/20 21:40 O2 Saturation 99 02/18/20 21:40 Temperature 99.5 F 02/18/20 21:51 Heart Rate 105 H 02/18/20 23:30 Respiratory Rate 18 02/18/20 23:30 Blood Pressure 134/57 H 02/18/20 23:30 O2 Saturation 99 02/18/20 21:51 - Procedures OB Procedure Performed: NST NST Procedure: 145 mod christel 15x15 accels no decels TOCO: intermittent Service Date of procedure: 02/18/20 Findings: Isoalted mild range blood pressure Serial BP checks all showed normal range BPs Patient was given acetaminophen 500 mg pox1, metoclopramide 5 mg x1 and oxycodone 5 mg po x1 Headache resolved. Normal range BPs Cat I tracing Patient was discharged to home with warning signs
== END 2020-02-19 | disposition home or self-care (01) ==
LOC: WFO 21:27 → FBP 21:30 → WFO 02-19
PROVIDERS: ATTEND Advanced Practice Midwife
DX: O99.89 Other specified diseases and conditions complicating pregnancy, childbirth and the puerperium (principal); R51 Headache; Z3A.39 39 weeks gestation of pregnancy
CPT/HCPCS: 99213; A9270

== ENCOUNTER 2020-02-26 07:47 | Inpatient (IN) | payer OTHER ==
[2020-02-26] MEDS ORDERED: SODIUM CHLORIDE FLUSH 0.9% 10 ML SYRINGE IVP PRN (09:06)
[2020-02-26] MEDS ORDERED: CARBOPROST TROMETHAMINE 250 MCG/ML AMP IM PRN (09:06)
[2020-02-26] MEDS ORDERED: LIDOCAINE-MPF 1% 30 ML VIAL ID PRN (09:06)
[2020-02-26] MEDS ORDERED: METHYLERGONOVINE 0.2 MG/ML VIAL IM PRN (09:06)
[2020-02-26] MEDS ORDERED: miSOPROStoL 200 MCG TABLET BC PRN (09:06)
[2020-02-26] MEDS ORDERED: fentaNYL 100 MCG/2 ML VIAL IVP PRN (09:06)
[2020-02-26] MEDS ORDERED: OXYTOCIN 10 UNIT/ML VIAL IM PRN (09:06)
[2020-02-26] MEDS ORDERED: TRANEXAMIC ACID 1,000 MG in SODIUM CHLORIDE 0.9% 100ML 100 ML IV PRN (09:06)
[2020-02-26] MEDS ORDERED: ONDANSETRON 4 MG/2 ML VIAL IVP PRN ×2 (09:06→13:05)
[2020-02-26 09:28] LABS: BASOPHILS % (AUTO) 0.2 %; EOSINOPHILS # (AUTO) 0.1 10^3/uL (0.0-0.7); EOSINOPHILS % (AUTO) 2.1 %; HGB - HEMOGLOBIN 11.6 g/dL (12.0-16.0); LYMPHOCYTES # (AUTO) 0.9 10^3/uL (1.5-3.5); LYMPHOCYTES % (AUTO) 16.2 %; MEAN CORPUSCULAR HEMOGLOBIN 28.9 pg (27.0-31.0); MEAN CORPUSCULAR HGB CONC 32.5 g/dL (32.0-36.0); MEAN CORPUSCULAR VOLUME 88.8 fL (81.0-99.0); MEAN PLATELET VOLUME 12.4 fL (7.9-10.8); MONOCYTES # (AUTO) 0.4 10^3/uL (0.0-1.0); MONOCYTES % (AUTO) 6.4 %; NEUTROPHILS # (AUTO) 4.2 10^3/uL (1.5-6.6); NEUTROPHILS % (AUTO) 74.6 %; PLT - PLATELET COUNT 99 10^3/uL (130-450); RED BLOOD COUNT 4.02 10^6/uL (4.20-5.40); RED CELL DISTRIBUTION WIDTH 15.8 % (12.0-15.0); WHITE BLOOD COUNT 5.6 x10^3/uL (4.8-10.8)
[2020-02-26] MEDS: LACTATED RINGERS 1,000 ML IV SCH ×2 (09:31→18:35)
[2020-02-26] MEDS ORDERED: OXYTOCIN/SODIUM CHLORIDE 500 ML IV SCH (10:00)
[2020-02-26 11:00] LABS: CREATININE,URINE 102.2 mg/dL; PROTEIN/CREATININE RATIO,URINE 0.3 (<=0.2)
--- NOTE | 2020-02-26 11:07 | PREOP HISTORY & PHYSICAL ---
DATE OF SERVICE: 02/26/2020 Physician: Eliel Lopez MD IDENTIFICATION The patient is a 29-year-old G5, P2, whose EDC was .' this was determined w ith early ultrasound as well as early exam.. CHIEF COMPLAINT Induction. HISTORY OF PRESENT ILLNESS The patient is 41 weeks today. She is here for induction of labor. She started her care at [facility] and transferred at 35 weeks and 6 days. She has a history of having her fi rst infant weigh 41 kg, second weighed 3.8 kg. She is here for induction of labor. Her labor atories showed her blood type to be A positive. She is rubella immune. Her 50 gram Glucola was 93. Her group B strep test was negative. She is negative for STIs. Her OB course has been unremarkable . She transferred care at 35 weeks. She has been having contractions on and off. PAST MEDICAL HISTORY Positive for rheumatoid arthritis. PAST SURGICAL HISTORY Positive for an ectopic with surgical resolution. ALLERGIES NONE KNOWN. CURRENT MEDICATIONS Folic acid, vitamins, Claritin, Benadryl, and Tylenol. HABITS The patient denies use of alcohol, tobacco, or street or addictive drugs. 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 She is originally from [facility] and speaks Somali very well. PHYSICAL EXAMINATION VITAL SIGNS On admission, her temperature is 37.1, blood pressure is 140/69, respirations are 24, he art rate is 94. Repeat blood pressure is 126/78. HEENT Pupils equal and round. Extraocular muscles are intact. NECK Thyroid is not palpably enlarged. HEART Regular rate and rhythm without murmurs. LUNGS Lung hebert are clear without rales or wheezes. ABDOMEN Gravid 41 cm. The cervix was noted to be 3 cm, 80%, -2 vertex. IMPRESSION A 29-year-old G5, P2, female at 41 weeks estimated gestational age with a history of mac rosomic with a large tear. She is here for induction of labor. Because of her cervical dilat ation we are going directly with Pitocin. We anticipate vaginal delivery. She may have an epidural p.r.n. basis. TD: 02/26/2020 09:22
[2020-02-26 11:59] LABS: ALBUMIN 3.2 g/dL (3.2-5.5); BILIRUBIN,TOTAL 0.5 mg/dL (0.2-1.0); CALCIUM 9.5 mg/dL (8.5-10.3); CREATININE 0.7 mg/dL (0.4-1.0); TOTAL PROTEIN 6.5 g/dL (6.7-8.2); URIC ACID 5.5 mg/dL (2.6-7.2)
--- NOTE | 2020-02-26 12:41 | ANESTHESIA ---
Pre-Anesthesia VS, & Labs - Diagnosis Induction of labor - Procedure vaginal delivery Vital Signs: Temp Pulse Resp BP Pulse Ox 37.1 C 94 24 140/69 H 02/26/20 07:53 02/26/20 07:53 02/26/20 07:53 02/26/20 07:53 Height 5 ft 8 in Weight (kg) 95.254 kg Body Mass Index 28.1 - NPO Other (clear liquids) - Is Patient ?: Yes - Lab Results Current Lab Results: Laboratory Tests 02/26/20 11:15: Sodium 135, Potassium 3.7, Chloride 107, Carbon Dioxide 20 L, Anion Gap 8.0, BUN 7, Creatinine 0.7, Estimated GFR (MDRD) 118, Glucose 59 L*, Uric Acid 5.5, Calcium 9.5, Total Bilirubin 0.5, AST 28, ALT 19, Alkaline Phosphatase 151 H, Total Protein 6.5 L, Albumin 3.2, Globulin 3.3, Albumin/Globulin Ratio 1.0 02/26/20 09:16: WBC 5.6, RBC 4.02 L, Hgb 11.6 L, Hct 35.7 L, MCV 88.8, MCH 28.9, MCHC 32.5, RDW 15.8 H, Plt Count 99 L, MPV 12.4 H, Neut # (Auto) 4.2, Lymph # (Auto) 0.9 L, [place] # (Auto) 0.4, Eos # (Auto) 0.1, Baso # (Auto) 0.0, Absolute Nucleated RBC 0.00, Nucleated RBC % 0.0 Fish Bones: 02/26/20 09:16 02/26/20 11:15 Home Medications and Allergies Active Medications Carboprost Tromethamine (Hemabate) 250 mcg IM Q15M PRN PRN Reason: Step 4: Hemorrhage protocol Stop: 03/02/20 09:09 Fentanyl (Fentanyl) 50 mcg IVP Q1H PRN PRN Reason: PAIN Tranexamic Acid 1,000 mg/ (Sodium Chloride) 110 mls @ 660 mls/hr IV .ONCE PRN PRN Reason: EBL >1200mL and within 3hr Stop: 03/02/20 09:09 Oxytocin/Sodium Chloride (Pitocin/Sodium Chloride) 500 mls @ 1 mls/hr IV TITR RL; Protocol Last Admin: 02/26/20 09:30 Dose: 1 milliunit/min, 1 mls/hr Documented by: Lactated Ringer's (Lr) 1,000 mls @ 100 mls/hr IV .Q10H RL Last Admin: 02/26/20 09:31 Dose: 100 mls/hr Documented by: Lidocaine HCl (Xylocaine-Mpf 1% Vial) 30 ml ID .ONCE PRN PRN Reason: PERINEAL REPAIR Stop: 03/02/20 09:09 Methylergonovine Maleate (Methergine Inj) 0.2 mg IM .ONCE PRN PRN Reason: Step 2: Hemorrhage protocol Stop: 03/02/20 09:09 Misoprostol (Cytotec) 800 mcg BC .ONCE PRN PRN Reason: Step 3: Hemorrhage protocol Stop: 03/02/20 09:09 Ondansetron HCl (Zofran Inj) 4 mg IVP Q4HR PRN PRN Reason: Nausea / Vomiting Oxytocin (Pitocin) 10 unit IM .ONCE PRN PRN Reason: Step one: If no IV access Stop: 03/02/20 09:09 Sodium Chloride (Normal Saline Flush 0.9%) 10 ml IVP 0100,0900,1700 [facility] Sodium Chloride (Normal Saline Flush 0.9%) 10 ml IVP PRN PRN PRN Reason: NEEDED PER PROVIDER ORDERS Multivitamin with Iron [Multivitamins with Iron] 1 each PO DAILY 10/17/17 sulfaSALAzine [Azulfidine] 1 tab PO DAILY 10/17/17 Allergies/Adverse Reactions: Allergies Allergy/AdvReac Type Severity Reaction Status Date / Time No Known Drug Allergies Allergy Verified 01/21/19 13:21 Anes History & Medical History - Anesthetic History Anesthesia Complications: reports: No previous complications - Medical History Cardiovascular: reports: None Pulmonary: reports: None Gastrointestinal: reports: None Urinary: reports: None Neuro: reports: None Musculoskeletal: reports: Rheumatoid arthritis Endocrine/Autoimmune: reports: None Blood Disorders: reports: None Skin: reports: None Smoking Status: Never smoker Psychosocial: reports: No issues indicated - Surgical History Gynecologic: Other (ectopic pregancy) - Obstetrical History : 5 Parity: 2 Complications: positive: Other (plat 99, will place epidural early) Exam General: Alert, Oriented x3, Cooperative, No acute distress Dental: WNL Mouth Openin Fingerbreadth Neck Mobility: Normal Mallampati classification: III Thyromental Distance: greater than 6 cm Mental/Cognitive Status: Alert/Oriented X3, Normal for patient Plan Anesthesia Type: Epidural Consent for Procedure(s) Verified and Reviewed: Yes Code Status: Attempt Resuscitation ASA classification: 2-Mild systemic disease Is this case an emergency?: No
[2020-02-26] MEDS ORDERED: ROPIVACAINE 0.2% 200 MG/100 ML BAG EP PRN (13:05)
[2020-02-26] MEDS ORDERED: NALOXONE 0.4 MG/ML VIAL IVP PRN (13:05)
[2020-02-26] MEDS ORDERED: ePHEDrine 50 MG/ML VIAL IVP PRN (13:05)
--- NOTE | 2020-02-26 14:28 | PROVIDER PROGRESS NOTE ---
Labor Progress Note - Uterine Monitoring Contraction Frequency (min/apart): 8 Contraction Intensity: positive: Mild Uterine Resting Tone: positive: Soft - Monitoring Heart Rate Baseline: 148 Heart Rate Variability: positive: Moderate (6-25 bmp) Accelerations: positive: Present, 15x15 Decelerations: positive: None Strip Review: positive: Category I - Labor Progress Note Labor Progress Note/Additional Text: Reviewed PIH labs. Platelets 99 H/H 11.6/35.7 UA 5.5 SGOT/SGPT 28/19 P/C 0.3 BP occasional 140 systolic diastolic 70 reviewed Platelets 149 @ 11wks, 138 @28 wks Impression: Mild PIH. continue with induction.
[2020-02-26] MEDS ORDERED: SODIUM CHLORIDE FLUSH 0.9% 10 ML SYRINGE IVP SCH (17:00)
--- NOTE | 2020-02-26 17:00 | PROVIDER PROGRESS NOTE ---
Labor Progress Note - Uterine Monitoring Uterine Monitoring Mode: positive: External toco Contraction Frequency (min/apart): 2-5 Contraction Intensity: positive: Mild to moderate Uterine Resting Tone: positive: Soft - Monitoring Heart Rate Baseline: 150 Heart Rate Variability: positive: Moderate (6-25 bmp) Accelerations: positive: Present, 15x15 Decelerations: positive: None Strip Review: positive: Category I - Vaginal Exam Dilation (in cm): 4+ Effacement (%): 50 Station: -3
[2020-02-26 18:05] LABS: BASOPHILS % (AUTO) 0.2 %; EOSINOPHILS # (AUTO) 0.2 10^3/uL (0.0-0.7); EOSINOPHILS % (AUTO) 2.6 %; HGB - HEMOGLOBIN 11.6 g/dL (12.0-16.0); LYMPHOCYTES # (AUTO) 1.1 10^3/uL (1.5-3.5); LYMPHOCYTES % (AUTO) 19.1 %; MEAN CORPUSCULAR HEMOGLOBIN 28.6 pg (27.0-31.0); MEAN CORPUSCULAR HGB CONC 32.2 g/dL (32.0-36.0); MEAN CORPUSCULAR VOLUME 88.7 fL (81.0-99.0); MEAN PLATELET VOLUME 13.4 fL (7.9-10.8); MONOCYTES # (AUTO) 0.3 10^3/uL (0.0-1.0); MONOCYTES % (AUTO) 5.7 %; NEUTROPHILS # (AUTO) 4.1 10^3/uL (1.5-6.6); NEUTROPHILS % (AUTO) 71.9 %; PLT - PLATELET COUNT 109 10^3/uL (130-450); RED BLOOD COUNT 4.06 10^6/uL (4.20-5.40); RED CELL DISTRIBUTION WIDTH 15.9 % (12.0-15.0); WHITE BLOOD COUNT 5.8 x10^3/uL (4.8-10.8)
[2020-02-26 18:13] LABS: ALBUMIN 3.1 g/dL (3.2-5.5); ALBUMIN/GLOBULIN RATIO 0.9 (1.0-2.2); BILIRUBIN,TOTAL 0.5 mg/dL (0.2-1.0); CALCIUM 9.2 mg/dL (8.5-10.3); CREATININE 0.7 mg/dL (0.4-1.0); TOTAL PROTEIN 6.5 g/dL (6.7-8.2); URIC ACID 5.5 mg/dL (2.6-7.2)
[2020-02-26 18:20] LABS: CREATININE,URINE 56.6 mg/dL; PROTEIN/CREATININE RATIO,URINE 0.4 (<=0.2)
[2020-02-26] MEDS ORDERED: LIDOCAINE-PF 2% 10 ML AMP SUBQ ONE (19:27)
[2020-02-26] MEDS ORDERED: fentaNYL 100 MCG/2 ML VIAL ONE (19:27)
[2020-02-26] MEDS ORDERED: SODIUM CHLORIDE 0.9% 10 ML ONE (19:27)
--- NOTE | 2020-02-27 00:07 | PROVIDER PROGRESS NOTE ---
Labor Progress Note - Uterine Monitoring Uterine Monitoring Mode: positive: External toco Contraction Frequency (min/apart): 2-3 Contraction Intensity: positive: Moderate to strong Uterine Resting Tone: positive: Soft - Monitoring Monitor Mode: positive: External ultrasound Heart Rate Variability: positive: Absent; amplitude undetectable, Minimal (0-5 bpm) Accelerations: positive: Present, 15x15 Decelerations: positive: None - Vaginal Exam Dilation (in cm): 8 Effacement (%): 80 Station: -1 Cervical Position: Midposition - Labor Progress Note Labor Progress Note/Additional Text: Slow progress. increase Pitocin
[2020-02-27] MEDS ORDERED: BUPIVACAINE 0.25% PF 10 ML VIAL ONE (02:00)
[2020-02-27] MEDS ORDERED: fentaNYL 100 MCG/2 ML VIAL ONE ×2 (02:00→08:14)
[2020-02-27] MEDS ORDERED: SODIUM CHLORIDE 0.9% 10 ML ONE (02:00)
--- NOTE | 2020-02-27 03:16 | ANESTHESIA PROCEDURE NOTE ---
Anesthesia Epidural Template - Patient Report Patient Reports: positive: Inadequate control - Other Comments Other Comments: Patient continues to have pain with contractions despite bolus. She reports back pain and lower abdominal pain with contractions. Advised patient to replace epidural to see if better pain control can be achieved. The previous epidural was removed with tip intact. After betadine prep, L3-L4 interspace was localized using 1% lidocaine. A 17G tuohy needle was inserted and loss of resistance was at 6cm. Dural puncture was performed using 25G genesis needle with positive CSF. Epidural catheter was advanced with ease. Test dose was negative. Epidural drip restarted with initial bolus of 10ml of 0.2% ropivicaine.
[2020-02-27] MEDS ORDERED: ROPIVACAINE 0.2% 200 MG/100 ML BAG EP PRN (03:18)
--- NOTE | 2020-02-27 03:18 | ANESTHESIA PROCEDURE NOTE ---
Anesthesia Epidural Template - Patient Report Patient Reports: positive: Inadequate control - Other Comments Other Comments: Reports pain with contractions, located in back and right lower abdomen. Epidural dosed with 5ml of 0.25% bupivicaine with 100mcg fentanyl and 3ml of PFNS
--- NOTE | 2020-02-27 03:33 | PROVIDER PROGRESS NOTE ---
Labor Progress Note - Uterine Monitoring Uterine Monitoring Mode: positive: External toco Contraction Frequency (min/apart): 2 Contraction Intensity: positive: Strong - Monitoring Monitor Mode: positive: External ultrasound Heart Rate Variability: positive: Moderate (6-25 bmp) Accelerations: positive: Present, 15x15 Decelerations: positive: None Strip Review: positive: Category I - Vaginal Exam Dilation (in cm): 9 Effacement (%): 90 Station: 0 Cervical Position: Anterior - Labor Progress Note Labor Progress Note/Additional Text: Pt C/O basck pain. head OP. checked for face presentation.
[2020-02-27] MEDS: LACTATED RINGERS 1,000 ML IV SCH (03:43)
--- NOTE | 2020-02-27 08:28 | CONSULTATION NOTE ---
Consultation Report: Callled to 2102 for intense pain with contractions. R>L. Able to move bilat lower extremities. Epidural dosed with 8cc 1% lidocaine and 2cc fentanyl (100mcg). Pain still present but not as intense after 5mins. Epidural scheduled intermittent bolus due in 5 mins. Pt states she is now comfortable after pump bolus.
[2020-02-27] MEDS ORDERED: diphenhydrAMINE 25 MG CAPSULE PO PRN (09:11)
[2020-02-27] MEDS ORDERED: WITCH HAZEL/GLYCERIN 1 PAD TOP PRN (09:11)
[2020-02-27] MEDS ORDERED: oxyCODONE 5 MG TABLET PO PRN (09:11)
[2020-02-27] MEDS ORDERED: OXYTOCIN/SODIUM CHLORIDE 500 ML IV PRN (09:15)
--- NOTE | 2020-02-27 09:31 | DELIVERY NOTE ---
Delivery Note - Labor Labor: positive: Induced by oxytocin - Infant Delivery Method Delivery Method: positive: Spontaneous vaginal delivery - Presentation Presentation: positive: Vertex, ROP - right occiput posterior - Nuchal Cord Nuchal Cord: positive: None (cord arround the left ankle) - Anesthetic Anesthetic Type: - Amniotic Fluid Description Amniotic Fluid Description: positive: Clear - Episiotomy Type Episiotomy Type: positive: None - Laceration Laceration: positive: None - Delivery Outcome Delivery Outcome: positive: Livebirth - [place] : positive: Placed in direct skin contact with mother, Suctioned, Stimulated, [place] used sex: positive: Female - Cord Cord: positive: 3 vessels - Placenta Placenta: positive: Intact - Estimated Blood Loss Estimated Blood Loss (in cc): 400 - Post Delivery Events Post Delivery Events: positive: No post delivery events - Delivery Comments (Free Text/Narrative) Delivery Comments (Free Text/Narrative): Being induced for 41 weeks EGA. She had a history of a 4100 g infant in the past. There is suspicion of possible macrosomia this time. Upon presenting to labor and delivery she was 3cm dilated. For this reason she was initiated on Pit. She had an epidural placed for labor analgesia. She reached complete at 824 and started pushing then. At 850 she delivered a live female infant right occiput posterior with a cord around the left ankle. There were no lacerations at time of delivery the placenta followed at 856 was inspected and noted to be intact. Her estimated blood loss was roughly 400 the infant had Apgars of 8 and 9. Weight is 4250 gms/9lb 6oz.
[2020-02-27] MEDS: IBUPROFEN 800 MG TABLET PO SCH ×3 (09:39→21:57)
[2020-02-27] MEDS: ACETAMINOPHEN 325 MG TABLET PO PRN ×3 (09:39→20:06)
[2020-02-27] MEDS ORDERED: LACTATED RINGERS 1,000 ML IV SCH (10:00)
[2020-02-27] MEDS ORDERED: SIMETHICONE CHEW 80 MG TABLET PO SCH (14:00)
[2020-02-27 19:20] LABS: PROTEIN/CREATININE RATIO,URINE 0.2 (<=0.2)
[2020-02-27 19:38] LABS: BASOPHILS % (AUTO) 0.2 %; EOSINOPHILS # (AUTO) 0.1 10^3/uL (0.0-0.7); EOSINOPHILS % (AUTO) 0.7 %; HGB - HEMOGLOBIN 10.7 g/dL (12.0-16.0); LYMPHOCYTES # (AUTO) 0.9 10^3/uL (1.5-3.5); LYMPHOCYTES % (AUTO) 8.9 %; MEAN CORPUSCULAR HEMOGLOBIN 28.9 pg (27.0-31.0); MEAN CORPUSCULAR HGB CONC 32.2 g/dL (32.0-36.0); MEAN CORPUSCULAR VOLUME 89.7 fL (81.0-99.0); MEAN PLATELET VOLUME 12.7 fL (7.9-10.8); MONOCYTES # (AUTO) 0.7 10^3/uL (0.0-1.0); MONOCYTES % (AUTO) 7.8 %; NEUTROPHILS # (AUTO) 7.8 10^3/uL (1.5-6.6); NEUTROPHILS % (AUTO) 81.8 %; PLT - PLATELET COUNT 91 10^3/uL (130-450); RED CELL DISTRIBUTION WIDTH 15.8 % (12.0-15.0); WHITE BLOOD COUNT 9.5 x10^3/uL (4.8-10.8)
[2020-02-27 19:48] LABS: ALBUMIN 2.4 g/dL (3.2-5.5); ALBUMIN/GLOBULIN RATIO 0.8 (1.0-2.2); BILIRUBIN,TOTAL 0.4 mg/dL (0.2-1.0); TOTAL PROTEIN 5.3 g/dL (6.7-8.2); URIC ACID 6.1 mg/dL (2.6-7.2)
[2020-02-27 20:30] LABS: DIFFERENTIAL COMMENT MANUAL=AUTO DIFF; PLATELET ESTIMATE, MANUAL DECREASED (<130,000) (NORMAL); PLATELET MORPHOLOGY NORMAL APPEARANCE (NORMAL); RBC MORPHOLOGY (MULTIPLE) NORMAL APPEARANCE (NORMAL)
[2020-02-27] MEDS: DOCUSATE SODIUM 100 MG CAPSULE PO SCH (21:19)
[2020-02-28] MEDS: ACETAMINOPHEN 325 MG TABLET PO PRN ×4 (00:55→14:05)
[2020-02-28] MEDS: IBUPROFEN 800 MG TABLET PO SCH ×2 (05:58→14:03)
--- NOTE | 2020-02-28 09:49 | PROVIDER PROGRESS NOTE ---
Subjective - Prog Note Date Prog Note Date: 02/28/20 Prog Note Time: 09:47 - Subjective Pt reports feeling: Improved Subjective: Isiah DONNELLY or scotoma. breast feeding C/O cramps. Objective - Vital Signs/Intake & Output Reviewed Vital Signs: Yes Vital Signs: Vital Signs x48h Temp Pulse Resp BP Pulse Ox 02/28/20 04:01 36.8 C 85 20 127/49 L 99 Intake & Output: Intake & Output 02/25/20 02/26/20 02/27/20 02/28/20 23:59 23:59 23:59 23:59 Intake Total 9215.296 2311.333 Output Total 1 1400 Balance 1405.667 37.333 - Objective General Appearance: positive: No acute distress, Alert Abdomen: positive: Non-tender, Mass (U-1) Reflexes: Knee (R): 1+, Knee (L): 0 - Lab Results Fish Bones: 02/27/20 19:30 02/27/20 19:30 Other Labs: Lab Results x24hrs 02/27/20 02/27/20 02/27/20 Range/Units 19:30 19:30 18:52 WBC 9.5 (4.8-10.8) x10^3/uL RBC 3.70 L (4.20-5.40) 10^6/uL Hgb 10.7 L (12.0-16.0) g/dL Hct 33.2 L (37.0-47.0) % MCV 89.7 (81.0-99.0) fL MCH 28.9 (27.0-31.0) pg MCHC 32.2 (32.0-36.0) g/dL RDW 15.8 H (12.0-15.0) % Plt Count 91 L (130-450) 10^3/uL MPV 12.7 H (7.9-10.8) fL Neut # (Auto) 7.8 H (1.5-6.6) 10^3/uL Lymph # (Auto) 0.9 L (1.5-3.5) 10^3/uL [place] # (Auto) 0.7 (0.0-1.0) 10^3/uL Eos # (Auto) 0.1 (0.0-0.7) 10^3/uL Baso # (Auto) 0.0 (0.0-0.1) 10^3/uL Absolute Nucleated RBC 0.00 x10^3/uL Band Neuts % (Manual) Not Reportable Abnorm Lymph % (Manual) Not Reportable Nucleated RBC % 0.0 /100WBC Neutrophils # (Manual) Not Reportable Lymphocytes # (Manual) Not Reportable Monocytes # (Manual) Not Reportable Eosinophils # (Manual) Not Reportable Basophils # (Manual) Not Reportable Differential Comment MANUAL=AUTO DIFF Manual Slide Review Indicated Platelet Estimate DECREASED (<130,000) (NORMAL) Platelet Morphology NORMAL APPEARANCE (NORMAL) RBC Morph Micro Appear NORMAL APPEARANCE (NORMAL) Sodium 137 (135-145) mmol/L Potassium 4.1 (3.5-5.0) mmol/L Chloride 108 (101-111) mmol/L Carbon Dioxide 22 (21-32) mmol/L Anion Gap 7.0 (6-13) BUN 7 (6-20) mg/dL Creatinine 1.0 (0.4-1.0) mg/dL Estimated GFR (MDRD) 78 L (>89) Glucose 111 H (70-100) mg/dL Uric Acid 6.1 (2.6-7.2) mg/dL Calcium 9.0 (8.5-10.3) mg/dL Total Bilirubin 0.4 (0.2-1.0) mg/dL AST 26 (10-42) IU/L ALT 16 (10-60) IU/L Alkaline Phosphatase 125 H (42-121) IU/L Total Protein 5.3 L (6.7-8.2) g/dL Albumin 2.4 L (3.2-5.5) g/dL Globulin 2.9 (2.1-4.2) g/dL Albumin/Globulin Ratio 0.8 L (1.0-2.2) Urine Creatinine 57.0 mg/dL Ur Total Protein Timed 13 mg/dL Protein/Creatinin Ratio 0.2 (<=0.2) Assessment/Plan - Problem List (1) (spontaneous vaginal delivery) Impression: recovering well Discharge medications Motrin 800 mg tylenol Colace reviewed breast feeding Contraception S/S of preE (2) Preeclampsia Impression: BP normalized. Labs normalized.
[2020-02-28 09:53] VITALS: BP 131/70
--- NOTE | 2020-02-28 10:00 | Discharge Plan ---
Discharge Plan Problem Reviewed?: Yes Disposition: Home, Self Care Condition: Good Diet: Regular Shower Restrictions: No Driving Restrictions: No No Smoking: If you smoke, Please STOP! Call for help.
[2020-02-28] MEDS: DOCUSATE SODIUM 100 MG CAPSULE PO SCH (10:09)
--- NOTE | 2020-02-28 10:43 | DISCHARGE SUMMARY ---
Physician: Eliel Lopez MD DATE OF ADMISSION: 02/26/2020 DATE OF DISCHARGE: 02/28/2020 ADMITTING DIAGNOSES 1. A 29-year-old G5, P2, at 41 weeks. 2. History of macrosomic infant. 3. Rule out preeclampsia. DISCHARGE DIAGNOSES 1. A 29-year-old G5, P2, at 41 weeks. 2. History of macrosomic . 3. Preeclampsia. 2. Thrombocytopenia of . PROCEDURES 1. Misoprostol cervical ripening. 2. Pitocin. 3. Epidural. 4. Spontaneous vaginal delivery. PRESENTING HISTORY: Patient is a 29-year-old , who is due on 02/18. This was determined with early ultrasound and exam. She presented for induction of labor. She had her initial care at [facility] and was transferred at 35 and 6. She has a history of a 4.1 kilogram infant. She was also noted on admission to have platelets of 99. However, when you trace her platelets earlier in 140 to 139 and now was 99. HOSPITAL COURSE: Patient was admitted. Misoprostol was utilized for cervical ripening. She responded to misoprostol. She had an epidural placed for labor analgesia utilized. Pitocin was utilized. She progressed to complete, but was noted to be occiput posterior. Her epidural was redosed and she delivered a live female ROP over an intact perineum. Blood loss at time of delivery was not excessive. She had no lacerations. Her course was complicated with a mild preeclampsia. Her protein/creatinine ratio reached 0.3. However, the remainder of her labs were all normal with the exception of the low platelets, which was felt to be thrombocytopenia of as she has noted a gradual decrease throughout her entire . Her blood pressures have normalized. She is being sent home today. MEDICATIONS 1. Motrin. 2. Tylenol. 3. Colace. We have discussed the issues of as well as mastitis and contraception. We discussed signs and symptoms of preeclampsia. Also, she is instructed to follow up in 3 days for recheck at which time we will recheck her blood pressure. TD: 02/28/2020 10:01 KEVIN
--- NOTE | 2020-02-28 16:07 | Labor Flowsheet ---
Labor Flowsheet Datetime Report Generated by CPN: 02/28/2020 16:07 Datetime: 02/28/2020 09:37 VITAL SIGNS NBP Sys/Maritza/Mean (mmHg): 131 : 70 : 82 Pulse: 99 LaborFlag: Labor Datetime: 02/27/2020 08:50 SpO2 (%): 99 Datetime: 02/27/2020 08:44 UTERINE ACTIVITY Monitor Mode: External Frequency (min): 2-4 Quality: Strong Duration (sec): 60-90 Pattern: Normal: <= 5 Contractions in 10 Minutes Resting Tone (Palpate): Relaxed ASSESSMENT A Monitor Mode: External US FHR Baseline Rate : 135 FHR Baseline Changes: No Baseline Change Variability: Moderate 6-25 bpm Accelerations: 15X15 Decelerations: None Category: Category I Oxygen Method: Room Air Datetime: 02/27/2020 08:40 STAGE 2 Pushing: Urge to Push Pushing Position: Pushing with Contractions Pushing Progress: Descent with Pushing; Caput Noted; Presenting Part Visible Datetime: 02/27/2020 08:29 COMMUNICATION Communication: Provider at Bedside Datetime: 02/27/2020 08:24 VAGINAL EXAM Dilatation (cm): 10.0 Station: 2 Exam by: nettie cathie I/O Interventions: Cerda Discontinued Datetime: 02/27/2020 08:12 Epidural Procedure Other: Single Dose Anesthesia Comments: lali simpsom Datetime: 02/27/2020 07:38 Pain Coping: Requesting Pain Medication or Epidural Pain Assessment Comments: lali fernandez called for epidural bolus, pain in back and around abd Vaginal Exam Comments: anterior lip Datetime: 02/27/2020 07:24 Patient Position/Activity: Left Lateral Datetime: 02/27/2020 07:22 Membranes Ruptured Date/Time: 02/26/2020 16:51 Datetime: 02/27/2020 07:15 Monitor Interventions for FHR: Ultrasound Adjusted Datetime: 02/27/2020 07:14 Respirations: 18 Temperature (C): 36.9 Datetime: 02/27/2020 06:16 Stage of : Labor Datetime: 02/27/2020 05:06 Temperature Route: Oral PAIN Pain Scale: 5 Pain Presence: Intermittent Pain Location: Back; Right Groin Datetime: 02/27/2020 04:51 MEDICATIONS Pitocin (milliunits): Increased to @ 14 Datetime: 02/27/2020 04:00 ANESTHESIA Anesthesia Plans: Epidural Anesthesia Level Check: T10- Umbilicus Datetime: 02/27/2020 03:24 Effacement (%): 100 Position 'A': Left Occipital Posterior Datetime: 02/27/2020 03:01 Epidural Procedure: Cath Placed Datetime: 02/27/2020 02:48 Patient Care Comments: sitting up for epidural Datetime: 02/27/2020 01:20 PATIENT CARE IV/Blood Work: IV leaking from hub has been tighten. Now infusing well Datetime: 02/27/2020 01:16 Pain Type: Cramping Pain Goal: 0 Datetime: 02/27/2020 00:03 Cervix, Consistency: Soft Cervix, Position: Midposition Datetime: 02/26/2020 22:54 Notification Reason: Status Update Datetime: 02/26/2020 22:24 TEACHING Instructional Method: Verbal Plan of Care: Plan of Care Discussed; Labor Labor/Induction: Labor Stages; Induction Pain Management: Epidural Datetime: 02/26/2020 22:17 Vaginal Bleeding: None Strip Reviewed by: Provider updated Datetime: 02/26/2020 21:15 Pitocin Checklist: At Least 1 Acceleration of 15 bpm x 15 Seconds in 30 Minutes or Adequate Variabi lity; No More than 1 Late Deceleration Occurred in Past 30 Minutes Datetime: 02/26/2020 21:00 Monitor Interventions for UA: [place] Adjusted Datetime: 02/26/2020 19:57 MATERNAL ASSESSMENT Level of Consciousness: Alert Headache: Denies Breath Sounds, Left: Clear and Equal Breath Sounds, Right: Clear and Equal Nausea/Vomiting: Denies RUQ Epigastric Pain: Denies Datetime: 02/26/2020 19:01 Pain Relief Measures: Comfort Measures Comfort Measures: Breathing/Relaxation Provider Notified (Name): Ely [employer] Communication Comments: Called to bedside to start epidural Datetime: 02/26/2020 17:45 Comments: interrupted strip due to patient positioning Datetime: 02/26/2020 17:00 Contraction Comments: coupling contractions Datetime: 02/26/2020 16:51 Membrane Status: Ruptured Membranes Rupture Method: Artificial Amniotic Fluid Color: Clear Datetime: 02/26/2020 14:00 DTR's/Clonus: DTRs 1+; No Clonus Datetime: 02/26/2020 12:47 PROCEDURE TIME OUT Procedure Verify: Correct Patient Identity; Correct Side and Site are Marked; Accurate Procedure Co nsent Form; Agreement on Procedure to be Done; Correct Patient Position; Safety Precautions Based on Patient History or Medication Use Epidural Positioning: Sitting Datetime: 02/26/2020 12:17 Teaching Comments: Discuss pain plan - patient desires early epidural placement but declines epidur al for pain at this time. Discussed s/sx of preeclampsia. Patient verbalizes understanding.
== END 2020-02-28 15:40 | disposition home or self-care (01) | DRG 806 ==
LOC: WFO 07:47 → FBP 07:51 → WFO 09:05 → FBP 09:06
PROVIDERS: ADMIT Obstetrics & Gynecology; ATTEND Obstetrics & Gynecology
PROC: 3E033VJ Introduction of Other Hormone into Peripheral Vein, Percutaneous Approach (ICD-10-PCS; 2020-02-26)
PROC: 10E0XZZ Delivery of Products of Conception, External Approach (ICD-10-PCS; principal; 2020-02-27)
DX: O48.0 Post-term pregnancy (principal); O99.12 Other diseases of the blood and blood-forming organs and certain disorders involving the immune mechanism complicating childbirth; Z37.0 Single live birth; D69.6 Thrombocytopenia, unspecified; Z3A.41 41 weeks gestation of pregnancy; O36.63X0 Maternal care for excessive fetal growth, third trimester, not applicable or unspecified; O14.04 Mild to moderate pre-eclampsia, complicating childbirth
CPT/HCPCS: 36415; 80053; 82570; 84156; 84550; 85025; 86850; 86900; 86901; 86920; A9270; J7120

== ENCOUNTER 2020-04-12 08:00 | Outpatient (CLI) | payer OTHER ==
[2020-04-12 22:00] LABS: CANDIDA GROUP DNA NEGATIVE (NEGATIVE); CANDIDA KRUSEI DNA NEGATIVE (NEGATIVE); TRICHOMONAS VAGINALIS DNA NEGATIVE (NEGATIVE)
== END 2020-04-12 23:59 | disposition home or self-care (01) ==
LOC: LAB.R 08:00
PROVIDERS: ATTEND Advanced Practice Midwife
DX: N89.8 Other specified noninflammatory disorders of vagina (principal)
CPT/HCPCS: 87661; 87801

== ENCOUNTER 2023-09-26 20:00 | Emergency (ER) | payer OTHER ==
--- NOTE | 2023-09-26 20:25 | ED Physician Documentation ---
PD HPI ABD PAIN - Stated complaint Stated Complaint: LT SIDE ABD PX - Chief complaint Chief Complaint: Abd Pain - History obtained from History obtained from: Patient - Additional information Additional information: She has a history of rheumatoid arthritis and is on methotrexate for that. About 5 years ago she had an ectopic . Over the last month or so she has developed left-sided abdominal pain that is mild at first but worse over the last 3 days. It is worse after eating about an hour after eating. She is mildly nauseous with it. She doubts any possibility of . No other abdominal surgeries other than the ectopic . No fevers or chills. No changes in bowel movements. She does not have dysuria per se but feels like the pain may be worse when she urinates. 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: Other - Present Medications Home Medications: Ambulatory Orders Medication Instructions Recorded Confirmed Multivitamin with Iron 1 each PO DAILY 10/17/17 10/17/17 [Multivitamins with Iron] sulfaSALAzine [Azulfidine] 1 tab PO DAILY 10/17/17 10/17/17 Docusate Sodium 100 mg PO DAILY #30 capsule 12/28/18 Famotidine 20 mg PO DAILY #30 tablet 12/28/18 Lidocaine Viscous 2% [Xylocaine 5 ml PO Q4H PRN #100 ml 12/28/18 Viscous 2%] Mag Hydrox/Aluminum Hyd/Simeth 10 ml PO Q4H PRN #355 ml 12/28/18 [Adv Antacid-[place] Liquid] Ondansetron Odt [Zofran] 4 mg TL Q6H PRN #10 tablet 01/04/19 Oxycodone HCl/Acetaminophen 1 - 2 each PO Q6H PRN #10 tablet 01/04/19 [Percocet 5-325 mg Tablet] Azithromycin [Zithromax] 250 mg PO DAILY #6 tablet 01/21/19 Benzonatate [Tessalon Perle] 100 - 200 mg PO TID PRN #30 capsule 01/21/19 polyethylene glycoL 3350(BULK) 17 gm PO DAILY PRN #1 bottle 11/05/19 [Miralax] Omeprazole 40 mg PO DAILY #30 cap 09/26/23 - Allergies Allergies/Adverse Reactions: Allergies Allergy/AdvReac Type Severity Reaction Status Date / Time hydroxychloroquine Allergy Itching Verified 09/26/23 20:17 - Social History Does the pt smoke?: No Smoking Status: Never smoker Does the pt drink ETOH?: No Does the pt have substance abuse?: No - Immunizations Immunizations are current?: Yes - POLST Patient has POLST: No PD ED PE NORMAL - Vitals Vital signs reviewed: Yes - General General: Alert and oriented X 3, No acute distress - Cardiac Cardiac: RRR, No murmur - Respiratory Respiratory: No respiratory distress, Clear bilaterally - Abdomen Abdomen: Normal bowel sounds, Soft, Other (She has minimal left upper quadrant tenderness without surgical signs.) Results - Vitals Vitals: Vital Signs - 24 hr 09/26/23 20:09 Temperature 36.1 C L Heart Rate 75 Respiratory 22 Rate Blood Pressure 127/72 O2 Saturation 100 Oxygen O2 Source Room air - Labs Labs: Laboratory Tests 09/26/23 09/26/23 09/26/23 20:27 20:38 20:38 WBC 6.2 RBC 4.58 Hgb 11.9 L Hct 39.2 MCV 85.6 MCH 26.0 L MCHC 30.4 L RDW 14.5 Plt Count 159 MPV 12.3 H Neut # (Auto) 4.1 Lymph # (Auto) 1.7 Page # (Auto) 0.3 Eos # (Auto) 0.2 Baso # (Auto) 0.0 Absolute Nucleated RBC 0.00 Nucleated RBC % 0.0 Sodium 138 Potassium 3.7 Chloride 105 Carbon Dioxide 27 Anion Gap 6.0 BUN 16 Creatinine 1.1 Estimated GFR (MDRD) 69 L Glucose 95 Calcium 9.9 Total Bilirubin 0.3 AST 17 ALT 15 Alkaline Phosphatase 57 Total Protein 8.4 Albumin 4.5 Globulin 3.9 Albumin/Globulin Ratio 1.2 Lipase 45 Urine Color YELLOW Urine Clarity CLEAR Urine pH 7.0 Ur Specific Barnhart 1.010 Urine Protein NEGATIVE Urine Glucose (UA) NEGATIVE Urine Ketones NEGATIVE Urine Occult Blood NEGATIVE Urine Nitrite NEGATIVE Urine Bilirubin NEGATIVE Urine Urobilinogen 0.2 (NORMAL) Ur Leukocyte Esterase NEGATIVE Ur Microscopic Review NOT INDICATED Urine Culture Comments NOT INDICATED Urine HCG, Qual NEGATIVE PD Medical Decision Making - ED course ED course: She presents with a months worth of left upper quadrant pain worse after eating. Minimal tenderness. Will trial a GI cocktail as gastritis/ulcer is on the differential. The differential would also include kidney stone, colitis, and a plethora of other intra-abdominal issues and will obtain CT scanning. This is predicated on her labs being unremarkable as she had a recent elevation in creatinine related they think to her methotrexate for her rheumatism. She did get improvement with a GI cocktail suggesting gastritis or ulcer as the cause and this was followed by IV Protonix. Care to Dr. Smith at 10 PM shift change pending CT imaging. Departure - Departure Clinical Impression: Abdominal pain Qualifiers: Abdominal location: left upper quadrant Qualified Code(s): R10.12 - Left upper quadrant pain Condition: Good Record reviewed to determine appropriate education?: Yes Instructions: ED Abdominal Pain Female Non-Specific Abdominal Pain Prescriptions: Omeprazole 40 mg PO DAILY #30 cap Comments: You are seen today for abdominal pain and you did get improvement with a "GI cocktail" which is suggestive of gastritis or ulcer as the cause. Your lab work was generally unremarkable, and no you are worried about your creatinine, it was 1.1 today which is I would say high normal but not alarming. If symptoms are persistent your doctor may want to refer you for upper endoscopy. Call your doctor to arrange a follow-up appointment, make the next available appointment. In the interim, return anytime if worse or if new symptoms develop. Forms: PCP List
[2023-09-26 20:46] LABS: BASOPHILS % (AUTO) 0.5 %; EOSINOPHILS # (AUTO) 0.2 10^3/uL (0.0-0.7); EOSINOPHILS % (AUTO) 2.4 %; HCT - HEMATOCRIT 39.2 % (37.0-47.0); HGB - HEMOGLOBIN 11.9 g/dL (12.0-16.0); LYMPHOCYTES # (AUTO) 1.7 10^3/uL (1.5-3.5); LYMPHOCYTES % (AUTO) 26.9 %; MEAN CORPUSCULAR HGB CONC 30.4 g/dL (32.0-36.0); MEAN CORPUSCULAR VOLUME 85.6 fL (81.0-99.0); MEAN PLATELET VOLUME 12.3 fL (7.9-10.8); MONOCYTES # (AUTO) 0.3 10^3/uL (0.0-1.0); NEUTROPHILS # (AUTO) 4.1 10^3/uL (1.5-6.6); PLT - PLATELET COUNT 159 10^3/uL (130-450); RED BLOOD COUNT 4.58 10^6/uL (4.20-5.40); RED CELL DISTRIBUTION WIDTH 14.5 % (12.0-15.0); WHITE BLOOD COUNT 6.2 x10^3/uL (4.8-10.8)
[2023-09-26 20:54] LABS: BILIRUBIN,URINE NEGATIVE (NEGATIVE); GLUCOSE, URINE (UA) NEGATIVE (NEGATIVE); KETONES,URINE (UA) NEGATIVE (NEGATIVE); LEUKOCYTE ESTERASE, URINE NEGATIVE (NEGATIVE); NITRITE,URINE NEGATIVE (NEGATIVE); OCCULT BLOOD,URINE NEGATIVE (NEGATIVE); PROTEIN,URINE NEGATIVE (NEGATIVE); UROBILINOGEN,URINE 0.2 (NORMAL) E.U./dL (NORMAL)
[2023-09-26 20:56] LABS: CLARITY,URINE CLEAR (CLEAR)
[2023-09-26 20:57] LABS: HCG UR QUAL NEGATIVE
[2023-09-26 21:03] LABS: ALBUMIN 4.5 g/dL (3.2-5.5); ALBUMIN/GLOBULIN RATIO 1.2 (1.0-2.2); BILIRUBIN,TOTAL 0.3 mg/dL (0.2-1.0); CALCIUM 9.9 mg/dL (8.5-10.3); CREATININE 1.1 mg/dL (0.6-1.3); POTASSIUM 3.7 mmol/L (3.5-4.5); TOTAL PROTEIN 8.4 g/dL (6.4-8.9)
[2023-09-26] MEDS: LIDOCAINE VISCOUS 2% 15 ML ORAL SYRINGE MM STA (21:18)
[2023-09-26] MEDS: MAG HYDROX/AL HYDROX/SIMETH 30 ML UDC PO STA (21:18)
[2023-09-26] MEDS: PANTOPRAZOLE 40 MG VIAL IVP STA (21:46)
[2023-09-26 22:38] VITALS: O2SAT 98
[2023-09-26] MEDS ORDERED: iohexoL-300 100 ML VIAL ONE (22:40)
[2023-09-26] MEDS: iohexoL-300 100 ML VIAL IVP ONE (23:20)
[2023-09-26] MEDS: SUCRALFATE 1 GM/10 ML UDC PO STA (23:26)
--- NOTE | 2023-09-27 00:03 | CT Report ---
PROCEDURE: Abdomen/Pelvis W INDICATIONS: iv only, abd pain CONTRAST: 100 ML OMNI 300 TECHNIQUE: After the administration of intravenous contrast, a CT scan of the abdomen and pelvis was performed. Images were recorded and evaluated at appropriate window settings. Reformats: coronal and sagittal. F or radiation dose reduction, the following was used: automated exposure control, adjustment of mA and /or kV according to patient size. COMPARISON: None. FINDINGS: Image quality: Diagnostic. Lower chest: Unremarkable. Liver: No solid mass. Gallbladder and biliary tree: No radiopaque stones or wall thickening. No biliary dilation. Spleen: No splenomegaly. Pancreas: No pancreatic ductal dilation. Adrenals: No adrenal nodule. Kidneys and ureters: No hydronephrosis. No renal cystic lesion which requires follow up. No solid mas s. Stomach, bowel and peritoneum: No bowel distension. No pathologic free fluid. Moderate colonic stool. Fecalized material in the small bowel may indicate increased intestinal transit time. Normal appendi x. Stomach is unremarkable. Lymph nodes: No central or retroperitoneal adenopathy. Vessels: No infrarenal aortic aneurysm. PELVIS Reproductive organs: Unremarkable. Bladder: No abnormal wall thickening, accounting for underdistention. Pelvic lymph nodes: No pelvic adenopathy by size criteria. Bones: No aggressive osseous abnormality. Other: No significant ventral or inguinal hernia. IMPRESSION: 1.No acute abnormality is seen in the abdomen or pelvis. 2.Moderate colonic stool. Fecalization of the material within the small bowel may indicate increased intestinal transit time. No signs of small bowel obstruction. Reviewed by: Anurag Vizcarra MD on 09/27/2023 12:02 AM PDT Approved by: Anurag Vizcarra MD on 09/27/2023 12:02 AM PDT Station ID: [id number]
--- NOTE | 2023-09-27 00:30 | ED Physician Documentation ---
ED Addendum - Addendum Addendum: 09/27/23 00:28 32-year-old female with a month-long abdominal pain in the left upper quadrant has responded to viscous lidocaine and Mylanta with improvement in her pain and she is left in my care at shift change with a CT of the abdomen pelvis pending. The results are as below. CT ab/pel: Impression: 1. No acute abnormality seen in the abdomen or pelvis. Moderate colonic stool. Fecalization of the material within the small bowel may indicate increased intestinal transit time. No signs of small bowel obstruction. The patient did develop some nausea here in the emergency room and I gave her a dose of Carafate. She indicates to me that she had run out of her methotrexate and had to start taking ibuprofen for pain control and this was a little more than a month ago. She has not taken ibuprofen for about 2 weeks now.She has been given Protonix here in the emergency department and Dr. Aguiar [place] 09/27/23 00:32 Impression: gastritis Plan: Protonix, fu DALJIT 09/27/23 00:34
[2023-09-27] MEDS: SUCRALFATE 1 GM/10 ML UDC PO STA (00:53)
[2023-09-27] MEDS: MAG HYDROX/AL HYDROX/SIMETH 30 ML UDC PO STA (00:53)
[2023-09-27 00:54] VITALS: BP 111/58
[2023-09-27] MEDS: LIDOCAINE VISCOUS 2% 15 ML ORAL SYRINGE MM STA (00:54)
== END 2023-09-27 01:07 | disposition home or self-care (01) ==
LOC: ED 20:00
DX: K29.70 Gastritis, unspecified, without bleeding (principal); M06.9 Rheumatoid arthritis, unspecified; T45.1X6A Underdosing of antineoplastic and immunosuppressive drugs, initial encounter; Z91.138 Patient's unintentional underdosing of medication regimen for other reason
CPT/HCPCS: 36415; 74177; 80053; 81003; 81025; 83690; 85025; 96374; 99283; 99284; A9270; Q9967; 81001; 87086